=== PATIENT | female | born 1960 | race Caucasian/White ===

== ENCOUNTER → 2018-10-11 07:55 | Outpatient (CLI) | payer OTHER, SELFPAY ==
[2018-10-11 08:22] LABS: Add Manual Diff / Slide Review NO; Basophils Absolute Auto 100 /uL (0-100); Basophils Percent Auto 0.9 % (0-2); Eosinophils Absolute Auto 100 /uL (0-450); Eosinophils Percent Auto 2.2 % (2-4); Hemoglobin 13.4 g/dL (12.0-16.0); Lymphocytes Absolute Auto 2200 /uL (1100-4500); Lymphocytes Percent Auto 38.2 % (25-40); Mean Corpuscular HGB Conc 33.6 % (30-36); Mean Corpuscular Hemoglobin 32.9 PG (26-34); Mean Corpuscular Volume 97.9 fL (80-100); Monocytes Absolute Auto 300 /uL (0-900); Neutrophils Absolute Auto 3000 /uL (1500-7000); Neutrophils Percent Auto 52.7 % (50-75); Platelet Count 231 X10^3/uL (150-400); Red Blood Cell Count 4.08 X10^6/uL (4.0-5.2); Red Cell Distribution Width 13.3 % (11.6-14.8); White Blood Cell Count 5.8 X10^3/uL (4.5-11.0)
[2018-10-11 08:43] LABS: Alanine Aminotransferase 28 IU/L (9-52); Albumin 4.6 g/dL (3.5-5.0); Albumin Globulin Ratio 1.7 (1.0-2.8); Alkaline Phosphatase 52 U/L (38-126); Aspartate Aminotransferase 29 IU/L (14-36); BUN Creatinine Ratio 18.8 (6-22); Bilirubin Total 0.4 mg/dL (0.2-1.3); Blood Urea Nitrogen 15 mg/dL (7-17); Calcium 9.6 mg/dL (8.4-10.2); Carbon Dioxide 28 mmol/L (22-32); Chloride 104 mmol/L (98-107); Cholesterol 229 mg/dL (140-199); Estimated Glomerular Filt Rate > 60.0 mL/min (>60); Globulin 2.7 g/dL (1.7-4.1); Glucose 100 mg/dL (70-100); HDL Cholesterol 55 mg/dL (40-60); HEMOLYSIS < 15 (0-50); LDL Cholesterol Calculated 157 mg/dL (<100); Sodium 139 mmol/L (137-145); Total Protein 7.3 g/dL (6.3-8.2); Triglycerides 84 mg/dL (35-150)
== END ==
PROVIDERS: PCP Physician Assistant; Visit Provider Physician Assistant
DX: E78.2 Mixed hyperlipidemia (principal)
CPT/HCPCS: 36415; 80053; 80061; 85025

== ENCOUNTER → 2019-11-02 08:07 | Outpatient (CLI) | payer OTHER, SELFPAY ==
[2019-11-02 10:16] LABS: Cholesterol 244 mg/dL (140-199); HDL Cholesterol 81 mg/dL (40-60); LDL Cholesterol Calculated 142 mg/dL (<100); Triglycerides 107 mg/dL (35-150)
[2019-11-02 10:17] LABS: Alanine Aminotransferase 16 IU/L (<35); Albumin 4.7 g/dL (3.5-5.0); Albumin Globulin Ratio 1.9 (1.0-2.8); Alkaline Phosphatase 45 U/L (38-126); Aspartate Aminotransferase 27 IU/L (14-36); BUN Creatinine Ratio 12.5 (6-22); Bilirubin Total 0.5 mg/dL (0.2-1.3); Blood Urea Nitrogen 10 mg/dL (7-17); Calcium 10.1 mg/dL (8.4-10.2); Carbon Dioxide 27 mmol/L (22-32); Chloride 102 mmol/L (98-107); Estimated Glomerular Filt Rate > 60.0 mL/min (>60); Globulin 2.5 g/dL (1.7-4.1); Glucose 90 mg/dL (70-100); HEMOLYSIS < 15 (0-50); Potassium 4.5 mmol/L (3.4-5.1); Sodium 137 mmol/L (137-145); Total Protein 7.2 g/dL (6.3-8.2)
== END ==
PROVIDERS: PCP Physician Assistant; Referring Provider Physician Assistant; Visit Provider Physician Assistant
DX: E78.2 Mixed hyperlipidemia (principal)
CPT/HCPCS: 36415; 80053; 80061

== ENCOUNTER → 2020-07-07 07:43 | Outpatient (CLI) | payer OTHER, SELFPAY ==
[2020-07-07 08:45] LABS: Add Manual Diff / Slide Review NO; Basophils Absolute Auto 100 /uL (0-100); Basophils Percent Auto 0.9 % (0-2); Eosinophils Absolute Auto 100 /uL (0-450); Eosinophils Percent Auto 1.5 % (2-4); Hematocrit 37.4 % (36-46); Hemoglobin 12.8 g/dL (12.0-16.0); Lymphocytes Absolute Auto 1900 /uL (1100-4500); Lymphocytes Percent Auto 30.5 % (25-40); Mean Corpuscular HGB Conc 34.3 % (30-36); Mean Corpuscular Hemoglobin 34.3 PG (26-34); Mean Corpuscular Volume 100.1 fL (80-100); Monocytes Absolute Auto 300 /uL (0-900); Monocytes Percent Auto 5.1 % (3-14); Neutrophils Absolute Auto 3800 /uL (1500-7000); Platelet Count 239 X10^3/uL (150-400); Red Blood Cell Count 3.74 X10^6/uL (4.0-5.2); Red Cell Distribution Width 12.5 % (11.6-14.8); White Blood Cell Count 6.1 X10^3/uL (4.5-11.0)
[2020-07-07 09:26] LABS: Alanine Aminotransferase 22 IU/L (<35); Albumin 4.4 g/dL (3.5-5.0); Albumin Globulin Ratio 1.7 (1.0-2.8); Alkaline Phosphatase 54 U/L (38-126); Aspartate Aminotransferase 31 IU/L (14-36); BUN Creatinine Ratio 18.7 (6-22); Bilirubin Total 0.7 mg/dL (0.2-1.3); Blood Urea Nitrogen 14 mg/dL (7-17); Calcium 9.8 mg/dL (8.4-10.2); Carbon Dioxide 29 mmol/L (22-32); Chloride 102 mmol/L (98-107); Cholesterol 234 mg/dL (140-199); Estimated Glomerular Filt Rate > 60.0 mL/min (>60); Globulin 2.6 g/dL (1.7-4.1); Glucose 88 mg/dL (70-100); HDL Cholesterol 86 mg/dL (40-60); HEMOLYSIS < 15 (0-50); LDL Cholesterol Calculated 121 mg/dL (<100); Potassium 4.5 mmol/L (3.4-5.1); Sodium 133 mmol/L (137-145); Triglycerides 136 mg/dL (35-150)
== END ==
PROVIDERS: PCP Physician Assistant; Referring Provider Physician Assistant; Visit Provider Physician Assistant
DX: E78.2 Mixed hyperlipidemia (principal)
CPT/HCPCS: 36415; 80053; 80061; 85025

== ENCOUNTER → 2021-01-09 07:52 | Outpatient (CLI) | payer OTHER, SELFPAY ==
[2021-01-09 08:32] LABS: Add Manual Diff / Slide Review NO; Basophils Absolute Auto 0 /uL (0-100); Basophils Percent Auto 0.7 % (0-2); Eosinophils Absolute Auto 100 /uL (0-450); Eosinophils Percent Auto 1.7 % (2-4); Hematocrit 36.2 % (36-46); Hemoglobin 12.4 g/dL (12.0-16.0); Lymphocytes Absolute Auto 1800 /uL (1100-4500); Lymphocytes Percent Auto 41.4 % (25-40); Mean Corpuscular HGB Conc 34.4 % (30-36); Mean Corpuscular Hemoglobin 34.2 PG (26-34); Mean Corpuscular Volume 99.4 fL (80-100); Monocytes Absolute Auto 300 /uL (0-900); Monocytes Percent Auto 7.7 % (3-14); Neutrophils Absolute Auto 2100 /uL (1500-7000); Neutrophils Percent Auto 48.5 % (50-75); Platelet Count 219 X10^3/uL (150-400); Red Blood Cell Count 3.64 X10^6/uL (4.0-5.2); Red Cell Distribution Width 12.7 % (11.6-14.8); White Blood Cell Count 4.3 X10^3/uL (4.5-11.0)
[2021-01-09 08:34] LABS: Alanine Aminotransferase 23 IU/L (<35); Albumin 4.5 g/dL (3.5-5.0); Albumin Globulin Ratio 1.7 (1.0-2.8); Alkaline Phosphatase 49 U/L (38-126); Aspartate Aminotransferase 35 IU/L (14-36); BUN Creatinine Ratio 18.1 (6-22); Bilirubin Total 0.5 mg/dL (0.2-1.3); Blood Urea Nitrogen 15 mg/dL (7-17); Calcium 9.7 mg/dL (8.4-10.2); Carbon Dioxide 28 mmol/L (22-32); Chloride 103 mmol/L (98-107); Cholesterol 230 mg/dL (140-199); Estimated Glomerular Filt Rate > 60.0 mL/min (>60); Globulin 2.6 g/dL (1.7-4.1); Glucose 99 mg/dL (70-100); HDL Cholesterol 80 mg/dL (40-60); HEMOLYSIS < 15 (0-50); LDL Cholesterol Calculated 131 mg/dL (<100); Potassium 4.2 mmol/L (3.4-5.1); Sodium 137 mmol/L (137-145); Total Protein 7.1 g/dL (6.3-8.2); Triglycerides 96 mg/dL (35-150)
[2021-01-09 09:08] LABS: Ferritin 46 ng/mL (11-264)
[2021-01-09 09:12] LABS: HEMOLYSIS < 15 (0-50); Iron 155 ug/dL (37-170)
[2021-01-09 09:23] LABS: Percent Iron Saturation 52 % (15-50); Total Iron Binding Capacity 297 ug/dL (265-497); Transferrin 255 mg/dL (206-381)
[2021-01-09 09:38] LABS: Folate 17.8 ng/mL (2.76-20.0); Vitamin B12 470 pg/mL (239-931)
== END ==
PROVIDERS: PCP Physician Assistant; Referring Provider Physician Assistant; Visit Provider Physician Assistant
DX: E78.2 Mixed hyperlipidemia (principal)
CPT/HCPCS: 80053; 80061; 82607; 82728; 82746; 83540; 83550; 85025

== ENCOUNTER 2021-03-27 16:17 | Emergency (ER) | payer OTHER, SELFPAY ==
[2021-03-27] VITALS (9 sets, daily range): BP systolic 186–226; BP diastolic 85–109; PULSE 80–97; RESP 18–99; TEMP 36.4; O2SAT 97–99; BMI 25.0
--- NOTE | 2021-03-27 16:46 | DI.RAD.S_ITS ---
PROCEDURE: XR CHEST 1V INDICATIONS: chest pain TECHNIQUE: One view of the chest was acquired. COMPARISON: [facility], , CHEST 2 VIEW, 03/01/2012, 10:58. FINDINGS: Surgical changes and devices: None. Lungs and pleura: Lungs are clear. No pleural effusions or pneumothorax. Mediastinum: Mediastinal contours appear normal. Heart size is normal. Bones and chest wall: No suspicious bony lesions. Overlying soft tissues appear unremarkable. IMPRESSION: Normal for age, source of current chest pain symptoms is not seen. Dictated by: Bravo Garrison M.D. on 03/27/2021 at 17:13 Approved by: Bravo Garrison M.D. on 03/27/2021 at 17:14
[2021-03-27 17:06] LABS: Add Manual Diff / Slide Review NO; Basophils Absolute Auto 100 /uL (0-100); Basophils Percent Auto 0.8 % (0-2); Eosinophils Absolute Auto 0 /uL (0-450); Eosinophils Percent Auto 0.5 % (2-4); Hematocrit 35.8 % (36-46); Hemoglobin 12.3 g/dL (12.0-16.0); Lymphocytes Absolute Auto 2000 /uL (1100-4500); Lymphocytes Percent Auto 23.6 % (25-40); Mean Corpuscular HGB Conc 34.3 % (30-36); Mean Corpuscular Hemoglobin 33.7 PG (26-34); Mean Corpuscular Volume 98.3 fL (80-100); Monocytes Absolute Auto 500 /uL (0-900); Monocytes Percent Auto 5.6 % (3-14); Neutrophils Absolute Auto 6000 /uL (1500-7000); Neutrophils Percent Auto 69.5 % (50-75); Platelet Count 231 X10^3/uL (150-400); Red Blood Cell Count 3.64 X10^6/uL (4.0-5.2); Red Cell Distribution Width 12.5 % (11.6-14.8); White Blood Cell Count 8.7 X10^3/uL (4.5-11.0)
[2021-03-27 17:18] LABS: Alanine Aminotransferase 26 IU/L (<35); Albumin 4.9 g/dL (3.5-5.0); Albumin Globulin Ratio 1.8 (1.0-2.8); Alkaline Phosphatase 54 U/L (38-126); Aspartate Aminotransferase 41 IU/L (14-36); BUN Creatinine Ratio 19.8 (6-22); Bilirubin Total 0.4 mg/dL (0.2-1.3); Blood Urea Nitrogen 16 mg/dL (7-17); Calcium 10.1 mg/dL (8.4-10.2); Carbon Dioxide 23 mmol/L (22-32); Chloride 100 mmol/L (98-107); Creatine Kinase 186 U/L (30-135); Estimated Glomerular Filt Rate > 60.0 mL/min (>60); Globulin 2.8 g/dL (1.7-4.1); Glucose 113 mg/dL (80-110); HEMOLYSIS < 15 (0-50); Lipase 147 U/L (23-300); Sodium 132 mmol/L (137-145); Total Protein 7.7 g/dL (6.3-8.2)
[2021-03-27 17:29] LABS: Troponin I < 0.012 ng/mL (0.01-0.034)
[2021-03-27 17:33] LABS: CKMB % Relative Index 1.1 % (1.5-5.0); Creatine Kinase MB 1.97 ng/mL (<2.37)
--- NOTE | 2021-03-27 20:16 | ED.GENADULT ---
HPI - General Adult General Chief complaint: Hypertension Stated complaint: HIGH BLOOD PRESSURE Time Seen by Provider: 03/27/21 19:23 Source: patient Mode of arrival: Ambulatory Limitations: no limitations History of Present Illness HPI narrative: Patient is a 61-year-old female. No prior history of high blood pressure. Had her eyes dilated couple days ago and since that time she states she has been taking her blood pressure at home and has been elevated. Today the systolic blood pressure was greater than 200. She is not having any chest pain. No shortness of breath. Does have some lightheadedness. She does admit to having multiple stressors at home which could be contributing to her symptoms. Has not tried anything for the high blood pressure prior to arrival. Related Data Allergies Allergy/AdvReac Type Severity Reaction Status Date / Time No Known Drug Allergies Allergy Verified 03/27/21 16:44 Review of Systems Constitutional Constitutional: Denies fever(s) and Denies headache(s) Eyes Eyes: Reports blurry vision ENT Ears, Nose, Mouth, and Throat: Denies headache(s) Cardiovascular Cardiovascular: Denies chest pain and Denies dyspnea Respiratory Respiratory: Denies dyspnea Gastrointestinal Gastrointestinal: Denies abdominal pain and Denies nausea Genitourinary Genitourinary: Reports system reviewed and no additional complaints, except as documented Musculoskeletal Musculoskeletal: Reports system reviewed and no additional complaints, except as documented Integumentary/Breasts Skin/Breast: Reports system reviewed and no additional complaints, except as documented Neurologic Neurologic: Denies headache(s) Psychiatric Psychiatric: Reports anxiety Endocrine Endocrine: Reports system reviewed and no additional complaints, except as documented Hematologic/Lymphatic On Anticoagulants: No Allergic/Immunologic Allergic/Immunologic: Reports system reviewed and no additional complaints, except as documented Patient History Medical History Laceration of left hand Social History Smoking Status: Former smoker Smoking Status: Former smoker alcohol intake frequency: 3 or more drinks per day Alcohol type: beer Substance Use Type: does not use Exam Initial Vital Signs Initial Vital Signs: Vital Signs Temperature 97.6 F 03/27/21 16:36 Pulse Rate 97 H 03/27/21 16:36 Respiratory Rate 18 03/27/21 16:36 Blood Pressure 226/109 H 03/27/21 16:36 Pulse Oximetry 98 03/27/21 16:36 Const General: cooperative and healthy appearing [facility] Head: normal to inspection and normocephalic Eyes General: appearance normal, both eyes and all related structures Resp Auscultation: clear to auscultation bilaterally Cardio Rate: regular rate Rhythm: regular rhythm GI Inspection: normal to inspection Palpation: soft Skin General: no rashes or lesions noted Neuro General: patient alert, patient awake and moves all extremities Extrem General: normal to inspection and capillary refill normal Psych Appearance: grossly normal and well kempt Course Orders Ordered: ED Orders 03/27/21 16:46 XR chest 1V Stat EKG-12 Lead Stat 03/27/21 16:57 Complete Blood Count AUTO DIFF Stat Comprehensive Metabolic Panel Stat Lipase Stat Troponin & CK Cardiac Panel Stat Vital Signs Vital signs: Vital Signs - 8 hr 03/27/21 18:25 03/27/21 18:30 03/27/21 19:00 Pulse Rate 85 85 85 Respiratory Rate 34 H 51 H 46 H Blood Pressure 204/99 H Pulse Oximetry 97 98 98 03/27/21 19:18 03/27/21 19:30 03/27/21 20:00 Pulse Rate 83 83 80 Respiratory Rate 24 48 H 46 H Blood Pressure 201/92 H 186/85 H 191/88 H Pulse Oximetry 98 99 98 03/27/21 20:27 03/27/21 20:31 Pulse Rate 82 81 Respiratory Rate 99 H Blood Pressure 193/93 H 193/93 H Pulse Oximetry 99 Medical Decision Making Lab Data Lab results reviewed: Yes I reviewed the patient's lab results. Result diagrams: 03/27/21 16:57 03/27/21 16:57 Labs: Lab Results 03/27/21 03/27/21 Range/Units 16:57 16:57 WBC 8.7 (4.5-11.0) X10^3/uL RBC 3.64 L (4.0-5.2) X10^6/uL Hgb 12.3 (12.0-16.0) g/dL Hct 35.8 L (36-46) % MCV 98.3 (80-100) fL MCH 33.7 (26-34) PG MCHC 34.3 (30-36) % RDW 12.5 (11.6-14.8) % Plt Count 231 (150-400) X10^3/uL Neut % (Auto) 69.5 (50-75) % Lymph % (Auto) 23.6 L (25-40) % Gregory % (Auto) 5.6 (3-14) % Eos % (Auto) 0.5 L (2-4) % Baso % (Auto) 0.8 (0-2) % Neut # (Auto) 6000 (8906-9403) /uL Lymph # (Auto) 2000 (0043-8605) /uL Gregory # (Auto) 500 (0-900) /uL Eos # (Auto) 0 (0-450) /uL Baso # (Auto) 100 (0-100) /uL Sodium 132 L (137-145) mmol/L Potassium 4.0 (3.4-5.1) mmol/L Chloride 100 (98-107) mmol/L Carbon Dioxide 23 (22-32) mmol/L BUN 16 (7-17) mg/dL Creatinine 0.81 (0.52-1.04) mg/dL Estimated GFR > 60.0 (>60) mL/min BUN/Creatinine Ratio 19.8 (6-22) Glucose 113 H (80-110) mg/dL Calcium 10.1 (8.4-10.2) mg/dL Total Bilirubin 0.4 (0.2-1.3) mg/dL AST 41 H (14-36) IU/L ALT 26 (<35) IU/L Alkaline Phosphatase 54 (38-126) U/L Total Creatine Kinase 186 H (30-135) U/L CK-MB (CK-2) 1.97 (<2.37) ng/mL CK-MB (CK-2) Rel Index 1.1 L (1.5-5.0) % Troponin I < 0.012 (0.01-0.034) ng/mL Total Protein 7.7 (6.3-8.2) g/dL Albumin 4.9 (3.5-5.0) g/dL Globulin 2.8 (1.7-4.1) g/dL Albumin/Globulin Ratio 1.8 (1.0-2.8) Lipase 147 (23-300) U/L Imaging Data Chest x-ray: Radiologist's Impression: [address] [id number] ReportSigned Patient: Delilah Severino AMR#: [id number]: 1960cct:[id number]/Sex: 61 / FDate of Service: 03/27/21Loc: EDAccession Number: [id number] Procedure: XR chest 1V Ordering Provider: Latanya Song D.O. PROCEDURE: XR CHEST 1V INDICATIONS: chest pain TECHNIQUE: One view of the chest was acquired. COMPARISON: [facility], CHEST 2 VIEW, 03/01/2012, 10:58. FINDINGS: Surgical changes and devices: None. Lungs and pleura: Lungs are clear. No pleural effusions or pneumothorax. Mediastinum: Mediastinal contours appear normal. Heart size is normal. Bones and chest wall: No suspicious bony lesions. Overlying soft tissues appear unremarkable. IMPRESSION: Normal for age, source of current chest pain symptoms is not seen. Dictated by: Bravo Garrison M.D. on 03/27/2021 at 17:13 Approved by: Bravo Garrison M.D. on 03/27/2021 at 17:14 MDM Narrative Medical decision making narrative: Patient does have hypertension here in the emergency department but does not appear to have any end-organ dysfunction from this. Not clinically in heart failure. Low suspicion for ACS. Low suspicion for intracranial pathology. Kidney functions unremarkable. No lower extremity swelling. I do suspect that anxiety has an important role in what is going on with her high blood pressure today. No indication for emergent lowering of her blood pressure. We did discuss taking her blood pressure at home and the proper way of doing this. Informed her that she should continue all of her medications as directed. She will contact her primary doctor to discuss the blood pressure values at home to see if there is any indication for starting medications. We will hold on doing that now. She was given strict return precautions and follow-up instructions. She expressed understanding and agreement. Discharge Plan Departure Patient Disposition: Home Clinical Impression: Hypertension Instructions: DI for High Blood Pressure Activity Restrictions/Additional Instructions: I recommend that you continue all of your medications as directed. I do recommend that you take your blood pressure at home like we discussed. Contact your primary provider for follow-up. Return to the emergency department for any new or worsening symptoms Referrals: Grace Ruvalcaba PA-C [Primary Care Provider] -
== END 2021-03-27 20:31 | disposition home or self-care (01) ==
PROVIDERS: Emergency Medicine; Emergency Provider Emergency Medicine; PCP Physician Assistant
DX: I10 Essential (primary) hypertension (principal); R07.9 Chest pain, unspecified; F41.9 Anxiety disorder, unspecified
CPT/HCPCS: 36415; 71045; 80053; 82550; 82553; 83690; 84484; 85025; 93005; 93010; 99283; 99284

== ENCOUNTER → 2021-04-02 17:29 | Outpatient (CLI) | payer OTHER, SELFPAY ==
--- NOTE | 2021-04-02 | DI.MRI.S_ITS ---
PROCEDURE: MR LUMBAR SPINE WO CON INDICATIONS: Radiculopathy, lumbar region TECHNIQUE: Noncontrast sagittal T1 spin echo and T2 fast echo, sagittal STIR, axial T1 and T2 fast spin echo through the lumbar spine. In cases with scoliosis, additional coronal T2 fast spin echo may be performed. COMPARISON: None. FINDINGS: Image quality: Excellent. Alignment and Curvature: There is normal bony alignment. Bone Marrow: Marrow is of normal overall signal. No acute vertebral body compression fractures. Spinal Cord: Conus medullaris terminates at the L1 level. Visualized cord demonstrates normal signal and size. Paraspinous Soft Tissues: No paravertebral masses. T12-L1: Normal appearance except for moderate disc height reduction and disc desiccation.. L1-L2: The degenerative disc disease present is [id number], with disc height reduction and disc desiccation but no significant spinal or foraminal stenosis is seen. L2-L3: Mild degenerative disc height reduction and desiccation. There is mild facet osteoarthritis bilaterally, with slight narrowing of the neural foramen greater on the right than the left and potential for mild asymmetric impingement on the course of the L2 nerve roots. L3-L4: Degenerative disc height reduction and desiccation is [id number], facet osteoarthritis is moderate in severity and greater on the right than the left with likelihood of mild impingement on the course of the right L3 nerve root. L4-L5: The degenerative change at this level is [id number], facet osteoarthritis is moderate and there is secondary bilateral moderate foraminal stenosis with likelihood of symmetric impingement on the course of the L4 nerve roots. Mild ligamentum flavum hypertrophy. L5-S1: No significant degenerative disc disease, minimal facet osteoarthritis without spinal or foraminal stenosis. IMPRESSION: There is relatively mild degenerative disc disease and facet osteoarthritis is a more prominent finding in this patient, as discussed in detail by level in the body of the report above. For foraminal stenosis is slightly greater on the right than the left due to asymmetric right greater than left facet hyperostosis. A disc herniation is not associated. No compression fracture is found. Dictated by: Bravo Garrison M.D. on 04/03/2021 at 15:57 Approved by: Bravo Garrison M.D. on 04/03/2021 at 16:03
== END ==
PROVIDERS: PCP Physician Assistant; Referring Provider Physical Medicine & Rehabilitation Pain Medicine; Visit Provider Physical Medicine & Rehabilitation Pain Medicine
DX: M51.16 Intervertebral disc disorders with radiculopathy, lumbar region (principal); M47.26 Other spondylosis with radiculopathy, lumbar region; M48.061 Spinal stenosis, lumbar region without neurogenic claudication
CPT/HCPCS: 72148

== ENCOUNTER 2021-04-30 13:30 | Outpatient (RCR) | payer OTHER, SELFPAY ==
--- NOTE | 2021-03-04 15:16 | PT.OIE ---
Current Diagnoses Other intervertebral disc degeneration, lumbar region (03/04/21) Strain of muscle, fascia and tendon of lower back, initial encounter (03/04/21) Visit Care Team Role Provider Type Grace Ruvalcaba PA-C Primary Care Provider Non-Staff Specialty: Internal Medicine Address: [address] [place] [address], [id number] Email: [email or web address] Reymundo Ryan MD Attending Provider Physician Referring Provider Specialty: Physical Medicine and Rehab Address: [address] [place] [address], [id number] Email: [email or web address] Physical Therapy Initial Evaluation PT-OP-A Visit Information Start: 03/03/21 15:23 Freq: Status: Active Protocol: Document 03/04/21 07:30 AMB (Rec: 03/04/21 14:33 AMB [id number]) Out-Patient Physical Therapy Visit Information Visit Information Visit Type Initial Evaluation Visit Start Time 07:30 Visit Stop Time 08:15 Total Visit Minutes 45 Visit Number 1 PT-OP-B Current Condition Start: 03/03/21 15:23 Freq: Status: Active Protocol: Document 03/04/21 07:32 AMB (Rec: 03/04/21 07:48 AMB [id number]) Current Condition History of Current Condition Onset Date 02/16/21 Current Complaints low back pain History of Current Condition 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 R sided difficulty with walking historically ( tightness/clicking in hip). Pain in shoulder blades with gardening started pain, and the next day low back pain increased. Previous baseline walking 2 miles with hills, now not walking. Standing for an extended period of time is a bit challenging. Denies radiating pain, numbness and tingling. Treatment Goals Patient/Caregiver Goals Return to walking without pain Prior Functional Status Baseline Function- ADL's Independent Baseline Function- Mobility Independent Current Functional Impairments (Reported) Functional Limitations- ADL's Has mostly been lying supine with ice pack Personal Factors Other Personal Factors That May Effect Pt reports 's health Therapy/Recovery issues make her anxious PT-OP-C Subjective Start: 03/03/21 15:23 Freq: Status: Active Protocol: Document 03/04/21 07:30 AMB (Rec: 03/04/21 15:12 AMB [id number]) Patient Questionnaires Oswestry Low Back Index Oswestry Score 38 Oswestry Impairment 20 to 39% Impaired (Score 20- 39) OP-PT Pain Assessment Comments Pain Comments neck pain, mid back pain and low back pain PT-OP-G Mobility & Gait Start: 03/03/21 15:23 Freq: Status: Active Protocol: Document 03/04/21 07:30 AMB (Rec: 03/04/21 15:12 AMB [id number]) OP Gait Assessment Comments Gait Comments Slightly stiff gait with decreased trunk rotation PT-OP-J Posture/Palpation/Skin Start: 03/03/21 15:23 Freq: Status: Active Protocol: Document 03/04/21 07:30 AMB (Rec: 03/04/21 15:12 AMB [id number]) Posture Evaluation Comments Posture Comments Flat lumbar spine with mild forward head posture PT-OP-K Range of Motion Start: 03/03/21 15:23 Freq: Status: Active Protocol: Document 03/04/21 07:30 AMB (Rec: 03/04/21 15:12 AMB [id number]) Lumbar Spine Range of Motion Lumbar Spine Active Percentage Testing Position Standing Flexion 100 Extension 100 Lateral Flexion Left 75 Lateral Flexion Right 100 Comments slight tightness in the right with left sidebending PT-OP-L Special Tests Start: 03/03/21 15:23 Freq: Status: Active Protocol: Document 03/04/21 07:30 AMB (Rec: 03/04/21 15:12 AMB [id number]) Special Tests Lumbar Spine Special Tests Straight Leg Raise Test Results - Standing Flexion Test Results - Hip Special Tests Scour Test Test Results - AVANI Test Results - PT-OP-M Strength Start: 03/03/21 15:23 Freq: Status: Active Protocol: Document 03/04/21 07:30 AMB (Rec: 03/04/21 15:12 AMB [id number]) Hip Strength Hip Manual Muscle Testing Right Flexion (L2) 4 Good Extension (S1) 4 Good Abduction 4 Good Comments back pain with resisted R flexion and extension 5/5 knee flex/ext and ankle PF and DF bilat Left Flexion (L2) 4+ Good+ Extension (S1) 5 Normal Abduction 4+ Good+ PT-OP-Q Treatments Start: 03/03/21 15:23 Freq: Status: Active Protocol: Document 03/04/21 07:30 AMB (Rec: 03/04/21 15:12 AMB [id number]) Therapeutic Exercises Supine Exercises 3 Supine Exercise Name DL table top Comments difficult 2 Supine Exercise Name supine march wit TA Reps/Minutes 2x10 Comments easy 1 Supine Exercise Name SLR with TA Reps/Minutes 2x10 PT-OP-T Assessment and Plan Start: 03/03/21 15:23 Freq: Status: Active Protocol: Document 03/04/21 07:30 AMB (Rec: 03/04/21 15:12 AMB [id number]) Physical Therapy Assessment Rehab Potential Rehabilitation Potential Good Evaluation Complexity Number of Personal Factors/Comorbidities 0 Number of Body Systems Impaired 4 or More Clinical Presentation at Evaluation Stable Impairments Impairments Activity Tolerance,Functional Activities,Functional Mobility ,Pain Goals Three Impairment HEP Short Term Goal (STG) Delilah will be independent and consistent with a HEP for her core stability. STG Duration 4 weeks Two Impairment Pain Short Term Goal (STG) Delilah will stand to make dinner for one hour without an increase in her baseline low back or midback pain. STG Duration 4 weeks Kiln Firer Goal (LTG) Delilah will lift 10# from the floor to waist height without an increase in pain. LTG Duration 6 weeks One Impairment Walking Short Term Goal (STG) Delilah will walk one mile over flat terrain without an increase in her baseline back pain. STG Duration 4 weeks Kiln Firer Goal (LTG) Delilah will return to walking 2 miles with hills without an increase in back pain. LTG Duration 6 weeks Assessment Summary Assessment Delilah attends physical therapy with recent onset low back pain that does not radiate. She does note a longer history of right leg tightness and upper back pain and wonders if these are related. Overall she is quite flexible, she has a long history of participating in ballet, and her LE strength is well maintained, but her core strength is poor. Prior treatment has included massage therapy which she is continuing to go to but states that she was quite sore afterwards. Physical therapy will focus on return to function (walking) and core stabilization, with manual therapy/modalities as necessary for pain releif. Physical Therapy Plan Frequency and Duration Frequency of Treatment 2x/Week Duration of Treatment 6 weeks Plan of Care Start Date 03/04/21 Plan of Care End Date 04/29/21 Therapeutic Interventions Therapeutic Interventions Home Exercise Program,Joint Mobilizations,Manual Therapy, Neuromuscular Re-education, Self-Care/Home Management,Soft Tissue Mobilization, Therapeutic Activities, Therapeutic Exercises Modalities Cold Pack/Ice Massage,Electric Stimulation,Hot Packs Next Visit Focus/Plan Next Note Type Treatment Note Next Visit Plan Establish HEP for core stabilization, manual as needed, encourage walking program as tolerated
--- NOTE | 2021-03-04 15:16 | PT.OPPOC ---
Physical, Occupational & Speech Therapy At [facility] Current Diagnoses Other intervertebral disc degeneration, lumbar region (03/04/21) Strain of muscle, fascia and tendon of lower back, initial encounter (03/04/21) Visit Care Team Role Provider Type Grace Ruvalcaba PA-C Primary Care Provider Non-Staff Specialty: Internal Medicine Address: [address] [place] [address], [address] Email: [email or web address] Reymundo Ryan MD Attending Provider Physician Referring Provider Specialty: Physical Medicine and Rehab Address: [address] [place] [address], [address] Email: [email or web address] Plan Of Care PT-OP-T Assessment and Plan Start: 03/03/21 15:23 Freq: Status: Active Protocol: Document 03/04/21 07:30 AMB (Rec: 03/04/21 15:12 AMB [id number]) Physical Therapy Assessment Rehab Potential Rehabilitation Potential Good Evaluation Complexity Number of Personal Factors/Comorbidities 0 Number of Body Systems Impaired 4 or More Clinical Presentation at Evaluation Stable Impairments Impairments Activity Tolerance,Functional Activities,Functional Mobility ,Pain Goals Three Impairment HEP Short Term Goal (STG) Delilah will be independent and consistent with a HEP for her core stability. STG Duration 4 weeks Two Impairment Pain Short Term Goal (STG) Delilah will stand to make dinner for one hour without an increase in her baseline low back or midback pain. 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 LTG Duration 6 weeks One Impairment Walking Short Term Goal (STG) Delilah will walk one mile over flat terrain without an increase in her baseline back pain. STG Duration 4 weeks Sewing Machine Operator Floorperson Goal (LTG) Delilah will return to walking 2 miles with hills without an increase in back pain. LTG Duration 6 weeks Assessment Summary Assessment Delilah attends physical therapy with recent onset low back pain that does not radiate. She does note a longer history of right leg tightness and upper back pain and wonders if these are related. Overall she is quite flexible, she has a long history of participating in [employer], and her LE strength is well maintained, but her core strength is poor. Prior treatment has included massage therapy which she is continuing to go to but states that she was quite sore afterwards. Physical therapy will focus on return to function (walking) and core stabilization, with manual therapy/modalities as necessary for pain releif. Physical Therapy Plan Frequency and Duration Frequency of Treatment 2x/Week Duration of Treatment 6 weeks Plan of Care Start Date 03/04/21 Plan of Care End Date 04/29/21 Therapeutic Interventions Therapeutic Interventions Home Exercise Program,Joint Mobilizations,Manual Therapy, Neuromuscular Re-education, Self-Care/Home Management,Soft Tissue Mobilization, Therapeutic Activities, Therapeutic Exercises Modalities Cold Pack/Ice Massage,Electric Stimulation,Hot Packs Next Visit Focus/Plan Next Note Type Treatment Note Next Visit Plan Establish HEP for core stabilization, manual as needed, encourage walking program as tolerated Plan of Care Dates Plan of Care Start Date 03/04/21 Plan of Care End Date 04/29/21 Electronically Signed by: Maria Elena Mora, PT 03/04/21 2414 Please Sign and Return: I have reviewed this Plan of Care and certify that the skilled therapy services above are required to meet the patient?s needs. Physician Signature Date Printed Name and Credentials Clinical Instructor Signature Printed Name and Credentials
--- NOTE | 2021-03-04 16:02 | PT.OPPOC ---
Physical, Occupational & Speech Therapy At [facility] Current Diagnoses Other intervertebral disc degeneration, lumbar region (03/04/21) Strain of muscle, fascia and tendon of lower back, initial encounter (03/04/21) Visit Care Team Role Provider Type Grace Ruvalcaba PA-C Primary Care Provider Non-Staff Specialty: Internal Medicine Address: [address] [place] [address], [address] Email: [email or web address] Reymundo Ryan MD Attending Provider Physician Referring Provider Specialty: Physical Medicine and Rehab Address: [address] [place] [address], [address] Email: [email or web address] Plan Of Care PT-OP-T Assessment and Plan Start: 03/03/21 15:23 Freq: Status: Active Protocol: Document 03/04/21 07:30 AMB (Rec: 03/04/21 15:12 AMB [id number]) Physical Therapy Assessment Rehab Potential Rehabilitation Potential Good Evaluation Complexity Number of Personal Factors/Comorbidities 0 Number of Body Systems Impaired 4 or More Clinical Presentation at Evaluation Stable Impairments Impairments Activity Tolerance,Functional Activities,Functional Mobility ,Pain Goals Three Impairment HEP Short Term Goal (STG) Delilah will be independent and consistent with a HEP for her core stability. STG Duration 4 weeks Two Impairment Pain Short Term Goal (STG) Delilah will stand to make dinner for one hour without an increase in her baseline low back or midback pain. STG Duration 4 weeks Campus Monitor Goal (LTG) Delilah will lift 10# from the floor to waist height without an increase in pain. LTG Duration 6 weeks One Impairment Walking Short Term Goal (STG) Delilah will walk one mile over flat terrain without an increase in her baseline back pain. STG Duration 4 weeks Campus Monitor Goal (LTG) Delilah will return to walking 2 miles with hills without an increase in back pain. LTG Duration 6 weeks Assessment Summary Assessment Delilah attends physical therapy with recent onset low back pain that does not radiate. She does note a longer history of right leg tightness and upper back pain and wonders if these are related. Overall she is quite flexible, she has a long history of participating in [employer], and her LE strength is well maintained, but her core strength is poor. Prior treatment has included massage therapy which she is continuing to go to but states that she was quite sore afterwards. Physical therapy will focus on return to function (walking) and core stabilization, with manual therapy/modalities as necessary for pain releif. Physical Therapy Plan Frequency and Duration Frequency of Treatment 2x/Week Duration of Treatment 6 weeks Plan of Care Start Date 03/04/21 Plan of Care End Date 04/29/21 Therapeutic Interventions Therapeutic Interventions Home Exercise Program,Joint Mobilizations,Manual Therapy, Neuromuscular Re-education, Self-Care/Home Management,Soft Tissue Mobilization, Therapeutic Activities, Therapeutic Exercises Modalities Cold Pack/Ice Massage,Electric Stimulation,Hot Packs Next Visit Focus/Plan Next Note Type Treatment Note Next Visit Plan Establish HEP for core stabilization, manual as needed, encourage walking program as tolerated Plan of Care Dates Plan of Care Start Date 03/04/21 Plan of Care End Date 04/29/21 Electronically Signed by: Maria Elena Mora, PT 03/04/21 0647 Please Sign and Return: I have reviewed this Plan of Care and certify that the skilled therapy services above are required to meet the patient?s needs. Physician Signature Date Printed Name and Credentials Clinical Instructor Signature Printed Name and Credentials
--- NOTE | 2021-03-06 14:13 | PT.OTN ---
Current Diagnoses Other intervertebral disc degeneration, lumbar region (03/06/21) Strain of muscle, fascia and tendon of lower back, initial encounter (03/06/21) Physical Therapy Treatment Note PT-OP-A Visit Information Start: 03/03/21 15:23 Freq: Status: Active Protocol: Document 03/06/21 09:00 AMB (Rec: 03/06/21 10:22 AMB [id number]) Out-Patient Physical Therapy Visit Information Visit Information Visit Type Treatment Note Visit Start Time 09:00 Visit Stop Time 09:45 Total Visit Minutes 45 Visit Number 2 PT-OP-B Current Condition Start: 03/03/21 15:23 Freq: Status: Active Protocol: Document 03/04/21 07:32 AMB (Rec: 03/04/21 07:48 AMB [id number]) Current Condition History of Current Condition Onset Date 02/16/21 Current Complaints low back pain History of Current Condition 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 R sided difficulty with walking historically ( tightness/clicking in hip). Pain in shoulder blades with gardening started pain, and the next day low back pain increased. Previous baseline walking 2 miles with hills, now not walking. Standing for an extended period of time is a bit challenging. Denies radiating pain, numbness and tingling. Treatment Goals Patient/Caregiver Goals Return to walking without pain Prior Functional Status Baseline Function- ADL's Independent Baseline Function- Mobility Independent Current Functional Impairments (Reported) Functional Limitations- ADL's Has mostly been lying supine with ice pack Personal Factors Other Personal Factors That May Effect Pt reports 's health Therapy/Recovery issues make her anxious PT-OP-C Subjective Start: 03/03/21 15:23 Freq: Status: Active Protocol: Document 03/06/21 09:00 AMB (Rec: 03/06/21 10:22 AMB [id number]) OP-PT Subjective Patient Comments Patient Comments Pt had a massage of her upper back and that helped. PT-OP-G Mobility & Gait Start: 03/03/21 15:23 Freq: Status: Active Protocol: Document 03/04/21 07:30 AMB (Rec: 03/04/21 15:12 AMB [id number]) OP Gait Assessment Comments Gait Comments Slightly stiff gait with decreased trunk rotation PT-OP-J Posture/Palpation/Skin Start: 03/03/21 15:23 Freq: Status: Active Protocol: Document 03/04/21 07:30 AMB (Rec: 03/04/21 15:12 AMB [id number]) Posture Evaluation Comments Posture Comments Flat lumbar spine with mild forward head posture PT-OP-K Range of Motion Start: 03/03/21 15:23 Freq: Status: Active Protocol: Document 03/04/21 07:30 AMB (Rec: 03/04/21 15:12 AMB [id number]) Lumbar Spine Range of Motion Lumbar Spine Active Percentage Testing Position Standing Flexion 100 Extension 100 Lateral Flexion Left 75 Lateral Flexion Right 100 Comments slight tightness in the right with left sidebending PT-OP-L Special Tests Start: 03/03/21 15:23 Freq: Status: Active Protocol: Document 03/04/21 07:30 AMB (Rec: 03/04/21 15:12 AMB [id number]) Special Tests Lumbar Spine Special Tests Straight Leg Raise Test Results - Standing Flexion Test Results - Hip Special Tests Scour Test Test Results - AVANI Test Results - PT-OP-M Strength Start: 03/03/21 15:23 Freq: Status: Active Protocol: Document 03/04/21 07:30 AMB (Rec: 03/04/21 15:12 AMB [id number]) Hip Strength Hip Manual Muscle Testing Right Flexion (L2) 4 Good Extension (S1) 4 Good Abduction 4 Good Comments back pain with resisted R flexion and extension 5/5 knee flex/ext and ankle PF and DF bilat Left Flexion (L2) 4+ Good+ Extension (S1) 5 Normal Abduction 4+ Good+ PT-OP-Q Treatments Start: 03/03/21 15:23 Freq: Status: Active Protocol: Document 03/06/21 14:08 AMB (Rec: 03/06/21 14:13 AMB [id number]) Cardio Equipment Recumbent Elliptical ([employer]) Duration (Minutes) 7 Resistance 3 Therapeutic Exercises Supine Exercises 1 Supine Exercise Name SLR with TA Reps/Minutes 2x10 Sitting Exercises 1 Sitting Exercise Name cape verdean ball 65cm Comments pelvic circles, LAQ, TKE Other Exercises 3 Other Exercise Name UE flexion in quadruped alternating Reps/Minutes 2x15 2 Other Exercise Name cat cow Reps/Minutes 10 1 Other Exercise Name marce pose with sidebend Reps/Minutes 30x3 PT-OP-T Assessment and Plan Start: 03/03/21 15:23 Freq: Status: Active Protocol: Document 03/06/21 09:00 AMB (Rec: 03/06/21 10:22 AMB [id number]) Physical Therapy Assessment Goals Three Impairment HEP Short Term Goal (STG) Delilah will be independent and consistent with a HEP for her core stability. STG Duration 4 weeks Two Impairment Pain Short Term Goal (STG) Delilah will stand to make dinner for one hour without an increase in her baseline low back or midback pain. STG Duration 4 weeks [facility] Goal (LTG) Delilah will lift 10# from the floor to waist height without an increase in pain. LTG Duration 6 weeks One Impairment Walking Short Term Goal (STG) Delilah will walk one mile over flat terrain without an increase in her baseline back pain. STG Duration 4 weeks Security Professionals Goal (LTG) Delilah will return to walking 2 miles with hills without an increase in back pain. LTG Duration 6 weeks Assessment Summary Assessment Fora tolerated exercises well today, does have increased tension on R, but stabilization exercises did not seem to exacerbate. Physical Therapy Plan Next Visit Focus/Plan Next Note Type Treatment Note Next Visit Plan Establish HEP for core stabilization, manual as needed, encourage walking program as tolerated stretching for midback.
--- NOTE | 2021-03-11 11:11 | PT.OTN ---
Current Diagnoses Other intervertebral disc degeneration, lumbar region (03/11/21) Strain of muscle, fascia and tendon of lower back, initial encounter (03/11/21) Physical Therapy Treatment Note PT-OP-A Visit Information Start: 03/03/21 15:23 Freq: Status: Active Protocol: Document 03/11/21 10:15 AMB (Rec: 03/11/21 10:18 AMB [id number]) Out-Patient Physical Therapy Visit Information Visit Information Visit Type Treatment Note Visit Start Time 10:15 Visit Stop Time 11:00 Total Visit Minutes 45 Visit Number 3 PT-OP-B Current Condition Start: 03/03/21 15:23 Freq: Status: Active Protocol: Document 03/04/21 07:32 AMB (Rec: 03/04/21 07:48 AMB [id number]) Current Condition History of Current Condition Onset Date 02/16/21 Current Complaints low back pain History of Current Condition 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 R sided difficulty with walking historically ( tightness/clicking in hip). Pain in shoulder blades with gardening started pain, and the next day low back pain increased. Previous baseline walking 2 miles with hills, now not walking. Standing for an extended period of time is a bit challenging. Denies radiating pain, numbness and tingling. Treatment Goals Patient/Caregiver Goals Return to walking without pain Prior Functional Status Baseline Function- ADL's Independent Baseline Function- Mobility Independent Current Functional Impairments (Reported) Functional Limitations- ADL's Has mostly been lying supine with ice pack Personal Factors Other Personal Factors That May Effect Pt reports 's health Therapy/Recovery issues make her anxious PT-OP-C Subjective Start: 03/03/21 15:23 Freq: Status: Active Protocol: Document 03/11/21 10:15 AMB (Rec: 03/11/21 11:11 AMB [id number]) OP-PT Subjective Patient Comments Patient Comments Tuesday had increased pain after hamstring stretch (long sitting), upper back pain on Tuesday. PT-OP-G Mobility & Gait Start: 03/03/21 15:23 Freq: Status: Active Protocol: Document 03/04/21 07:30 AMB (Rec: 03/04/21 15:12 AMB [id number]) OP Gait Assessment Comments Gait Comments Slightly stiff gait with decreased trunk rotation PT-OP-J Posture/Palpation/Skin Start: 03/03/21 15:23 Freq: Status: Active Protocol: Document 03/04/21 07:30 AMB (Rec: 03/04/21 15:12 AMB [id number]) Posture Evaluation Comments Posture Comments Flat lumbar spine with mild forward head posture PT-OP-K Range of Motion Start: 03/03/21 15:23 Freq: Status: Active Protocol: Document 03/04/21 07:30 AMB (Rec: 03/04/21 15:12 AMB [id number]) Lumbar Spine Range of Motion Lumbar Spine Active Percentage Testing Position Standing Flexion 100 Extension 100 Lateral Flexion Left 75 Lateral Flexion Right 100 Comments slight tightness in the right with left sidebending PT-OP-L Special Tests Start: 03/03/21 15:23 Freq: Status: Active Protocol: Document 03/04/21 07:30 AMB (Rec: 03/04/21 15:12 AMB [id number]) Special Tests Lumbar Spine Special Tests Straight Leg Raise Test Results - Standing Flexion Test Results - Hip Special Tests Scour Test Test Results - AVANI Test Results - PT-OP-M Strength Start: 03/03/21 15:23 Freq: Status: Active Protocol: Document 03/04/21 07:30 AMB (Rec: 03/04/21 15:12 AMB [id number]) Hip Strength Hip Manual Muscle Testing Right Flexion (L2) 4 Good Extension (S1) 4 Good Abduction 4 Good Comments back pain with resisted R flexion and extension 5/5 knee flex/ext and ankle PF and DF bilat Left Flexion (L2) 4+ Good+ Extension (S1) 5 Normal Abduction 4+ Good+ PT-OP-Q Treatments Start: 03/03/21 15:23 Freq: Status: Active Protocol: Document 03/11/21 10:15 AMB (Rec: 03/11/21 11:11 AMB [id number]) Therapeutic Exercises Supine Exercises 1 Supine Exercise Name SLR with TA Reps/Minutes 2x10 Sidelying Exercises 2 Sidelying Exercise Name QL stretch Side left Reps/Minutes 30x2 1 Sidelying Exercise Name open book. Reps/Minutes 10 Standing Exercises 1 Standing Exercise Name t band rows Side bilateral Resistance #3 Reps/Minutes 2x10 Comments vc TA, soft knees, relax shoulders Other Exercises 4 Other Exercise Name thread the needle Side bilateral Reps/Minutes 5 2 Other Exercise Name cat cow Reps/Minutes 10 PT-OP-T Assessment and Plan Start: 03/03/21 15:23 Freq: Status: Active Protocol: Document 03/11/21 10:15 AMB (Rec: 03/11/21 11:11 AMB [id number]) Physical Therapy Assessment Assessment Summary Assessment Discussed nature of back pain and that she will likely have small flareups as she recovers . Encouraged her to avoid bending/twisting and bending for hamstring stretching activities, also discussed weed whacking (lots of rotation) and that might not be the best activity for now. Physical Therapy Plan Next Visit Focus/Plan Next Note Type Treatment Note Next Visit Plan Establish HEP for core stabilization, manual as needed, encourage walking program as tolerated stretching for midback.
--- NOTE | 2021-03-13 10:32 | PT.OTN ---
Current Diagnoses Other intervertebral disc degeneration, lumbar region (03/13/21) Strain of muscle, fascia and tendon of lower back, initial encounter (03/13/21) Physical Therapy Treatment Note PT-OP-A Visit Information Start: 03/03/21 15:23 Freq: Status: Active Protocol: Document 03/13/21 09:01 AMB (Rec: 03/13/21 09:28 AMB [id number]) Out-Patient Physical Therapy Visit Information Visit Information Visit Type Treatment Note Visit Start Time 09:00 Visit Stop Time 09:45 Total Visit Minutes 45 Visit Number 4 PT-OP-B Current Condition Start: 03/03/21 15:23 Freq: Status: Active Protocol: Document 03/04/21 07:32 AMB (Rec: 03/04/21 07:48 AMB [id number]) Current Condition History of Current Condition Onset Date 02/16/21 Current Complaints low back pain History of Current Condition 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 R sided difficulty with walking historically ( tightness/clicking in hip). Pain in shoulder blades with gardening started pain, and the next day low back pain increased. Previous baseline walking 2 miles with hills, now not walking. Standing for an extended period of time is a bit challenging. Denies radiating pain, numbness and tingling. Treatment Goals Patient/Caregiver Goals Return to walking without pain Prior Functional Status Baseline Function- ADL's Independent Baseline Function- Mobility Independent Current Functional Impairments (Reported) Functional Limitations- ADL's Has mostly been lying supine with ice pack Personal Factors Other Personal Factors That May Effect Pt reports 's health Therapy/Recovery issues make her anxious PT-OP-C Subjective Start: 03/03/21 15:23 Freq: Status: Active Protocol: Document 03/13/21 09:01 AMB (Rec: 03/13/21 09:28 AMB [id number]) OP-PT Subjective Patient Comments Patient Comments Delilah reports increased pain yesterday in her low back, unsure why. PT-OP-G Mobility & Gait Start: 03/03/21 15:23 Freq: Status: Active Protocol: Document 03/04/21 07:30 AMB (Rec: 03/04/21 15:12 AMB [id number]) OP Gait Assessment Comments Gait Comments Slightly stiff gait with decreased trunk rotation PT-OP-J Posture/Palpation/Skin Start: 03/03/21 15:23 Freq: Status: Active Protocol: Document 03/04/21 07:30 AMB (Rec: 03/04/21 15:12 AMB [id number]) Posture Evaluation Comments Posture Comments Flat lumbar spine with mild forward head posture PT-OP-K Range of Motion Start: 03/03/21 15:23 Freq: Status: Active Protocol: Document 03/04/21 07:30 AMB (Rec: 03/04/21 15:12 AMB [id number]) Lumbar Spine Range of Motion Lumbar Spine Active Percentage Testing Position Standing Flexion 100 Extension 100 Lateral Flexion Left 75 Lateral Flexion Right 100 Comments slight tightness in the right with left sidebending PT-OP-L Special Tests Start: 03/03/21 15:23 Freq: Status: Active Protocol: Document 03/04/21 07:30 AMB (Rec: 03/04/21 15:12 AMB [id number]) Special Tests Lumbar Spine Special Tests Straight Leg Raise Test Results - Standing Flexion Test Results - Hip Special Tests Scour Test Test Results - AVANI Test Results - PT-OP-M Strength Start: 03/03/21 15:23 Freq: Status: Active Protocol: Document 03/04/21 07:30 AMB (Rec: 03/04/21 15:12 AMB [id number]) Hip Strength Hip Manual Muscle Testing Right Flexion (L2) 4 Good Extension (S1) 4 Good Abduction 4 Good Comments back pain with resisted R flexion and extension 5/5 knee flex/ext and ankle PF and DF bilat Left Flexion (L2) 4+ Good+ Extension (S1) 5 Normal Abduction 4+ Good+ PT-OP-Q Treatments Start: 03/03/21 15:23 Freq: Status: Active Protocol: Document 03/13/21 09:01 AMB (Rec: 03/13/21 09:28 AMB [id number]) Therapeutic Exercises Supine Exercises 3 Supine Exercise Name LTR Reps/Minutes 20 2 Supine Exercise Name sciatic n glide Reps/Minutes 5 Sidelying Exercises 2 Sidelying Exercise Name QL stretch Side left Reps/Minutes 30x2 1 Sidelying Exercise Name open book. Reps/Minutes 10 Other Exercises 4 Other Exercise Name thread the needle Side bilateral Reps/Minutes 5 3 Other Exercise Name quadruped TA with UE flexion alternating Reps/Minutes 10 1 Other Exercise Name marce pose with sidebend Reps/Minutes 30x3 PT-OP-T Assessment and Plan Start: 03/03/21 15:23 Freq: Status: Active Protocol: Document 03/13/21 09:01 AMB (Rec: 03/13/21 09:28 AMB [id number]) Physical Therapy Assessment Goals Three Impairment HEP Short Term Goal (STG) Delilah will be independent and consistent with a HEP for her core stability. STG Duration 4 weeks Two Impairment Pain Short Term Goal (STG) Delilah will stand to make dinner for one hour without an increase in her baseline low back or midback pain. STG Duration 4 weeks Restaurant Host Goal (LTG) Delilah will lift 10# from the floor to waist height without an increase in pain. LTG Duration 6 weeks One Impairment Walking Short Term Goal (STG) Delilah will walk one mile over flat terrain without an increase in her baseline back pain. STG Duration 4 weeks Correction Goal (LTG) Delilah will return to walking 2 miles with hills without an increase in back pain. LTG Duration 6 weeks Assessment Summary Assessment Delilah had increased low back pain yesterday and did have some sciatic n tension today on the R. Did not progress HEP due to increased pain today, did discuss body mechanics with washing dishes. Physical Therapy Plan Frequency and Duration Frequency of Treatment 2x/Week Duration of Treatment 6 weeks Plan of Care Start Date 03/04/21 Plan of Care End Date 04/29/21 Therapeutic Interventions Therapeutic Interventions Home Exercise Program,Joint Mobilizations,Manual Therapy, Neuromuscular Re-education, Self-Care/Home Management,Soft Tissue Mobilization, Therapeutic Activities, Therapeutic Exercises Modalities Cold Pack/Ice Massage,Electric Stimulation,Hot Packs Next Visit Focus/Plan Next Note Type Treatment Note Next Visit Plan Establish HEP for core stabilization, manual as needed, encourage walking program as tolerated stretching for midback.
--- NOTE | 2021-03-17 08:17 | PT.OTN ---
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 R sided difficulty with walking historically ( tightness/clicking in hip). Pain in shoulder blades with gardening started pain, and the next day low back pain increased. Previous baseline walking 2 miles with hills, now not walking. Standing for an extended period of time is a bit challenging. Denies radiating pain, numbness and tingling. Treatment Goals Patient/Caregiver Goals Return to walking without pain Prior Functional Status Baseline Function- ADL's Independent Baseline Function- Mobility Independent Current Functional Impairments (Reported) Functional Limitations- ADL's Has mostly been lying supine with ice pack Personal Factors Other Personal Factors That May Effect Pt reports 's health Therapy/Recovery issues make her anxious PT-OP-C Subjective Start: 03/03/21 15:23 Freq: Status: Active Protocol: Document 03/17/21 07:30 SP (Rec: 03/17/21 08:20 SP [id number]) OP-PT Subjective Patient Comments Patient Comments Pt states compliant with HEP instructed in tx. R shld and Mid back is getting better, mainly low back and saddle around R ilium to lateral and anterior R thigh and knee achy discomfort. PT-OP-G Mobility & Gait Start: 03/03/21 15:23 Freq: Status: Active Protocol: Document 03/04/21 07:30 AMB (Rec: 03/04/21 15:12 AMB [id number]) OP Gait Assessment Comments Gait Comments Slightly stiff gait with decreased trunk rotation PT-OP-J Posture/Palpation/Skin Start: 03/03/21 15:23 Freq: Status: Active Protocol: Document 03/04/21 07:30 AMB (Rec: 03/04/21 15:12 AMB [id number]) Posture Evaluation Comments Posture Comments Flat lumbar spine with mild forward head posture PT-OP-K Range of Motion Start: 03/03/21 15:23 Freq: Status: Active Protocol: Document 03/04/21 07:30 AMB (Rec: 03/04/21 15:12 AMB [id number]) Lumbar Spine Range of Motion Lumbar Spine Active Percentage Testing Position Standing Flexion 100 Extension 100 Lateral Flexion Left 75 Lateral Flexion Right 100 Comments slight tightness in the right with left sidebending PT-OP-L Special Tests Start: 03/03/21 15:23 Freq: Status: Active Protocol: Document 03/04/21 07:30 AMB (Rec: 03/04/21 15:12 AMB [id number]) Special Tests Lumbar Spine Special Tests Straight Leg Raise Test Results - Standing Flexion Test Results - Hip Special Tests Scour Test Test Results - AVANI Test Results - PT-OP-M Strength Start: 03/03/21 15:23 Freq: Status: Active Protocol: Document 03/04/21 07:30 AMB (Rec: 03/04/21 15:12 AMB [id number]) Hip Strength Hip Manual Muscle Testing Right Flexion (L2) 4 Good Extension (S1) 4 Good Abduction 4 Good Comments back pain with resisted R flexion and extension 5/5 knee flex/ext and ankle PF and DF bilat Left Flexion (L2) 4+ Good+ Extension (S1) 5 Normal Abduction 4+ Good+ PT-OP-Q Treatments Start: 03/03/21 15:23 Freq: Status: Active Protocol: Document 03/17/21 07:30 SP (Rec: 03/17/21 08:20 SP [id number]) Therapeutic Exercises Supine Exercises ITB stretch Side bilateral Reps/Minutes 30 x2 3 Supine Exercise Name LTR Reps/Minutes 20 2 Supine Exercise Name sciatic and peroneal n glide Side right Reps/Minutes 5 Sidelying Exercises 2 Sidelying Exercise Name QL stretch (single LTR stretch ) on side Side left Reps/Minutes 30x2 1 Sidelying Exercise Name open book. Side bilateral Reps/Minutes 10 Standing Exercises TFL stretch Standing Exercise Name stand lunge and 1/2 kneel w/ hip IR Reps/Minutes 30 x3 Other Exercises self stms ball wall Other Exercise Name TFL, glut med, pirformis, paraspinals Reps/Minutes 30 4 Other Exercise Name thread the needle Side bilateral Reps/Minutes 5 3 Other Exercise Name quadruped TA with UE flexion alternating Reps/Minutes 10 2 Other Exercise Name cat cow Reps/Minutes 10 PT-OP-T Assessment and Plan Start: 03/03/21 15:23 Freq: Status: Active Protocol: Document 03/17/21 07:30 SP (Rec: 03/17/21 08:20 SP [id number]) Physical Therapy Assessment Goals Three Impairment HEP Short Term Goal (STG) Delilah will be independent and consistent with a HEP for her core stability. STG Duration 4 weeks Two Impairment Pain Short Term Goal (STG) Delilah will stand to make dinner for one hour without an increase in her baseline low back or midback pain. STG Duration 4 weeks Pool Attendant Goal (LTG) Delilah will lift 10# from the floor to waist height without an increase in pain. LTG Duration 6 weeks One Impairment Walking Short Term Goal (STG) Delilah will walk one mile over flat terrain without an increase in her baseline back pain. STG Duration 4 weeks Pool Attendant Goal (LTG) Delilah will return to walking 2 miles with hills without an increase in back pain. LTG Duration 6 weeks Assessment Summary Assessment Pt responded well to HEP review, added open book, standing and 1/2 kneel TFL stretch, and self STMs w/ racquetball on wall to TFL, paraspinals, glut med and pirformis to to decrease tightness and allow flexibility. Cued for set up and proper form with good result feedback. Physical Therapy Plan Frequency and Duration Frequency of Treatment 2x/Week Duration of Treatment 6 weeks Plan of Care Start Date 03/04/21 Plan of Care End Date 04/29/21 Therapeutic Interventions Therapeutic Interventions Home Exercise Program,Joint Mobilizations,Manual Therapy, Neuromuscular Re-education, Self-Care/Home Management,Soft Tissue Mobilization, Therapeutic Activities, Therapeutic Exercises Modalities Cold Pack/Ice Massage,Electric Stimulation,Hot Packs Next Visit Focus/Plan Next Note Type Treatment Note Next Visit Plan Assess response to flexibility , self STMs at wall w/ rac ball. Next tx estabilish core and hip stabilization strengthening. PT POC:Establish HEP for core stabilization, manual as needed, encourage walking program as tolerated stretching for midback.
--- NOTE | 2021-03-20 09:00 | PT.OTN ---
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 R sided difficulty with walking historically ( tightness/clicking in hip). Pain in shoulder blades with gardening started pain, and the next day low back pain increased. Previous baseline walking 2 miles with hills, now not walking. Standing for an extended period of time is a bit challenging. Denies radiating pain, numbness and tingling. Treatment Goals Patient/Caregiver Goals Return to walking without pain Prior Functional Status Baseline Function- ADL's Independent Baseline Function- Mobility Independent Current Functional Impairments (Reported) Functional Limitations- ADL's Has mostly been lying supine with ice pack Personal Factors Other Personal Factors That May Effect Pt reports 's health Therapy/Recovery issues make her anxious PT-OP-C Subjective Start: 03/03/21 15:23 Freq: Status: Active Protocol: Document 03/20/21 08:19 SP (Rec: 03/20/21 08:58 SP [id number]) OP-PT Subjective Patient Comments Patient Comments Pt LB feels little throbbing, only when up for a while, did get massage yesterday in upper back not LB due didnt' respond well after last massage in LB. Pt is taking ibuprofen and muscle relaxer when needed. PT-OP-G Mobility & Gait Start: 03/03/21 15:23 Freq: Status: Active Protocol: Document 03/04/21 07:30 AMB (Rec: 03/04/21 15:12 AMB [id number]) OP Gait Assessment Comments Gait Comments Slightly stiff gait with decreased trunk rotation PT-OP-J Posture/Palpation/Skin Start: 03/03/21 15:23 Freq: Status: Active Protocol: Document 03/04/21 07:30 AMB (Rec: 03/04/21 15:12 AMB [id number]) Posture Evaluation Comments Posture Comments Flat lumbar spine with mild forward head posture PT-OP-K Range of Motion Start: 03/03/21 15:23 Freq: Status: Active Protocol: Document 03/04/21 07:30 AMB (Rec: 03/04/21 15:12 AMB [id number]) Lumbar Spine Range of Motion Lumbar Spine Active Percentage Testing Position Standing Flexion 100 Extension 100 Lateral Flexion Left 75 Lateral Flexion Right 100 Comments slight tightness in the right with left sidebending PT-OP-L Special Tests Start: 03/03/21 15:23 Freq: Status: Active Protocol: Document 03/04/21 07:30 AMB (Rec: 03/04/21 15:12 AMB [id number]) Special Tests Lumbar Spine Special Tests Straight Leg Raise Test Results - Standing Flexion Test Results - Hip Special Tests Scour Test Test Results - AVANI Test Results - PT-OP-M Strength Start: 03/03/21 15:23 Freq: Status: Active Protocol: Document 03/04/21 07:30 AMB (Rec: 03/04/21 15:12 AMB [id number]) Hip Strength Hip Manual Muscle Testing Right Flexion (L2) 4 Good Extension (S1) 4 Good Abduction 4 Good Comments back pain with resisted R flexion and extension 5/5 knee flex/ext and ankle PF and DF bilat Left Flexion (L2) 4+ Good+ Extension (S1) 5 Normal Abduction 4+ Good+ PT-OP-Q Treatments Start: 03/03/21 15:23 Freq: Status: Active Protocol: Document 03/20/21 08:19 SP (Rec: 03/20/21 08:58 SP [id number]) Therapeutic Exercises Supine Exercises core/ glut bridge Resistance AROM Reps/Minutes 2x10 Comments cued PPT & core fac, stable pelvis lift core SLR Supine Exercise Name alternate Side bilateral Resistance AROM Reps/Minutes 2x8 Comments cued slow control, core fac stable pelvis- fatigues approx 8 reps ITB stretch Side bilateral Equipment Used w/strap Reps/Minutes 30 x2 3 Supine Exercise Name LTR Reps/Minutes 20 Sidelying Exercises 2 Sidelying Exercise Name QL stretch on side over pillow Side bilateral Reps/Minutes 30x2 Comments lateral ribcage stretch 1 Sidelying Exercise Name open book. Side bilateral Reps/Minutes 10 Standing Exercises TFL stretch Standing Exercise Name stand lunge w/ hip IR Equipment Used contact table/ wall Reps/Minutes 30 x3 Other Exercises 3 Other Exercise Name quadruped TA with UE flexion and LE ext slide contact table alternating Reps/Minutes x10 PT-OP-T Assessment and Plan Start: 03/03/21 15:23 Freq: Status: Active Protocol: Document 03/20/21 08:19 SP (Rec: 03/20/21 08:58 SP [id number]) Physical Therapy Assessment Goals Three Impairment HEP Short Term Goal (STG) Delilah will be independent and consistent with a HEP for her core stability. STG Duration 4 weeks Two Impairment Pain Short Term Goal (STG) Delilah will stand to make dinner for one hour without an increase in her baseline low back or midback pain. STG Duration 4 weeks Detention Goal (LTG) Delilah will lift 10# from the floor to waist height without an increase in pain. LTG Duration 6 weeks One Impairment Walking Short Term Goal (STG) Delilah will walk one mile over flat terrain without an increase in her baseline back pain. STG Duration 4 weeks Project Specialist Goal (LTG) Delilah will return to walking 2 miles with hills without an increase in back pain. LTG Duration 6 weeks Assessment Summary Assessment Pt responded well flexibility review, initiated sidelying QL and added core facil supine and quadruped LE ext to bird dog slide contact table bird dog, improved self corrections for proper form post cues. Pt stated painfree through tx. Physical Therapy Plan Frequency and Duration Frequency of Treatment 2x/Week Duration of Treatment 6 weeks Plan of Care Start Date 03/04/21 Plan of Care End Date 04/29/21 Therapeutic Interventions Therapeutic Interventions Home Exercise Program,Joint Mobilizations,Manual Therapy, Neuromuscular Re-education, Self-Care/Home Management,Soft Tissue Mobilization, Therapeutic Activities, Therapeutic Exercises Modalities Cold Pack/Ice Massage,Electric Stimulation,Hot Packs Next Visit Focus/Plan Next Note Type Treatment Note Next Visit Plan Assess response to flexibility , core initiation supine. Continue to progress core and hip stabilization strengthening. PT POC:Establish HEP for core stabilization, manual as needed, encourage walking program as tolerated stretching for midback.
--- NOTE | 2021-04-14 15:29 | PT.OTN ---
Current Diagnoses Other intervertebral disc degeneration, lumbar region (04/14/21) Strain of muscle, fascia and tendon of lower back, initial encounter (04/14/21) Physical Therapy Treatment Note PT-OP-A Visit Information Start: 03/03/21 15:23 Freq: Status: Active Protocol: Document 04/14/21 09:00 AMB (Rec: 04/14/21 09:43 AMB [id number]) Out-Patient Physical Therapy Visit Information Visit Information Visit Type Treatment Note Visit Start Time 09:00 Visit Stop Time 09:45 Total Visit Minutes 45 Visit Number 7 Number of BIOLOGICAL TECHNICAL OFFICER Visits 0 PT-OP-B Current Condition Start: 03/03/21 15:23 Freq: Status: Active Protocol: Document 03/04/21 07:32 AMB (Rec: 03/04/21 07:48 AMB [id number]) Current Condition History of Current Condition Onset Date 02/16/21 Current Complaints low back pain History of Current Condition 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 R sided difficulty with walking historically ( tightness/clicking in hip). Pain in shoulder blades with gardening started pain, and the next day low back pain increased. Previous baseline walking 2 miles with hills, now not walking. Standing for an extended period of time is a bit challenging. Denies radiating pain, numbness and tingling. Treatment Goals Patient/Caregiver Goals Return to walking without pain Prior Functional Status Baseline Function- ADL's Independent Baseline Function- Mobility Independent Current Functional Impairments (Reported) Functional Limitations- ADL's Has mostly been lying supine with ice pack Personal Factors Other Personal Factors That May Effect Pt reports 's health Therapy/Recovery issues make her anxious PT-OP-C Subjective Start: 03/03/21 15:23 Freq: Status: Active Protocol: Document 04/14/21 09:00 AMB (Rec: 04/14/21 09:43 AMB [id number]) OP-PT Subjective Patient Comments Patient Comments Pt is returning after about a month off to get MRI results, she is hoping to continue with PT to avoid surgery. PT-OP-G Mobility & Gait Start: 03/03/21 15:23 Freq: Status: Active Protocol: Document 03/04/21 07:30 AMB (Rec: 03/04/21 15:12 AMB [id number]) OP Gait Assessment Comments Gait Comments Slightly stiff gait with decreased trunk rotation PT-OP-J Posture/Palpation/Skin Start: 03/03/21 15:23 Freq: Status: Active Protocol: Document 03/04/21 07:30 AMB (Rec: 03/04/21 15:12 AMB [id number]) Posture Evaluation Comments Posture Comments Flat lumbar spine with mild forward head posture PT-OP-K Range of Motion Start: 03/03/21 15:23 Freq: Status: Active Protocol: Document 03/04/21 07:30 AMB (Rec: 03/04/21 15:12 AMB [id number]) Lumbar Spine Range of Motion Lumbar Spine Active Percentage Testing Position Standing Flexion 100 Extension 100 Lateral Flexion Left 75 Lateral Flexion Right 100 Comments slight tightness in the right with left sidebending PT-OP-L Special Tests Start: 03/03/21 15:23 Freq: Status: Active Protocol: Document 03/04/21 07:30 AMB (Rec: 03/04/21 15:12 AMB [id number]) Special Tests Lumbar Spine Special Tests Straight Leg Raise Test Results - Standing Flexion Test Results - Hip Special Tests Scour Test Test Results - AVANI Test Results - PT-OP-M Strength Start: 03/03/21 15:23 Freq: Status: Active Protocol: Document 03/04/21 07:30 AMB (Rec: 03/04/21 15:12 AMB [id number]) Hip Strength Hip Manual Muscle Testing Right Flexion (L2) 4 Good Extension (S1) 4 Good Abduction 4 Good Comments back pain with resisted R flexion and extension 5/5 knee flex/ext and ankle PF and DF bilat Left Flexion (L2) 4+ Good+ Extension (S1) 5 Normal Abduction 4+ Good+ PT-OP-Q Treatments Start: 03/03/21 15:23 Freq: Status: Active Protocol: Document 04/14/21 09:00 AMB (Rec: 04/14/21 15:29 AMB [id number]) Therapeutic Exercises Sitting Exercises 2 Sitting Exercise Name simulated kayak row with T band on ball 1 Sitting Exercise Name qatari ball 65cm Comments pelvic circles, LAQ, TKE, alternating march with UE and LE PT-OP-T Assessment and Plan Start: 03/03/21 15:23 Freq: Status: Active Protocol: Document 04/14/21 09:00 AMB (Rec: 04/14/21 09:43 AMB [id number]) Physical Therapy Assessment Goals Three Impairment HEP Short Term Goal (STG) Delilah will be independent and consistent with a HEP for her core stability. STG Duration 4 weeks Two Impairment Pain Short Term Goal (STG) Delilah will stand to make dinner for one hour without an increase in her baseline low back or midback pain. STG Duration 4 weeks Office Workforce Planner Goal (LTG) Delilah will lift 10# from the floor to waist height without an increase in pain. LTG Duration 6 weeks One Impairment Walking Short Term Goal (STG) Delilah will walk one mile over flat terrain without an increase in her baseline back pain. STG Duration 4 weeks Office Workforce Planner Goal (LTG) Delilah will return to walking 2 miles with hills without an increase in back pain. LTG Duration 6 weeks Assessment Summary Assessment Pt returns with MRI results, R sided arthritis and mild nerve compression. She has been able to return to mild walking- nothing steep and doing a little bit of yardwork . Physical Therapy Plan Frequency and Duration Frequency of Treatment 2x/Week Duration of Treatment 6 weeks Plan of Care Start Date 03/04/21 Plan of Care End Date 04/29/21 Next Visit Focus/Plan Next Note Type Treatment Note Next Visit Plan Assess response to flexibility , core initiation supine. Continue to progress core and hip stabilization strengthening. PT POC:Establish HEP for core stabilization, manual as needed, encourage walking program as tolerated stretching for midback.
--- NOTE | 2021-04-16 14:57 | PT.OTN ---
Current Diagnoses Other intervertebral disc degeneration, lumbar region (04/16/21) Strain of muscle, fascia and tendon of lower back, initial encounter (04/16/21) Physical Therapy Treatment Note PT-OP-A Visit Information Start: 03/03/21 15:23 Freq: Status: Active Protocol: Document 04/16/21 08:15 AMB (Rec: 04/16/21 08:44 AMB [id number]) Out-Patient Physical Therapy Visit Information Visit Information Visit Type Treatment Note Visit Start Time 08:15 Visit Stop Time 09:00 Total Visit Minutes 45 Visit Number 8 PT-OP-B Current Condition Start: 03/03/21 15:23 Freq: Status: Active Protocol: Document 03/04/21 07:32 AMB (Rec: 03/04/21 07:48 AMB [id number]) Current Condition History of Current Condition Onset Date 02/16/21 Current Complaints low back pain History of Current Condition 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 R sided difficulty with walking historically ( tightness/clicking in hip). Pain in shoulder blades with gardening started pain, and the next day low back pain increased. Previous baseline walking 2 miles with hills, now not walking. Standing for an extended period of time is a bit challenging. Denies radiating pain, numbness and tingling. Treatment Goals Patient/Caregiver Goals Return to walking without pain Prior Functional Status Baseline Function- ADL's Independent Baseline Function- Mobility Independent Current Functional Impairments (Reported) Functional Limitations- ADL's Has mostly been lying supine with ice pack Personal Factors Other Personal Factors That May Effect Pt reports 's health Therapy/Recovery issues make her anxious PT-OP-C Subjective Start: 03/03/21 15:23 Freq: Status: Active Protocol: Document 04/16/21 08:15 AMB (Rec: 04/16/21 08:44 AMB [id number]) OP-PT Subjective Patient Comments Patient Comments Pt is feeling pretty good. PT-OP-G Mobility & Gait Start: 03/03/21 15:23 Freq: Status: Active Protocol: Document 03/04/21 07:30 AMB (Rec: 03/04/21 15:12 AMB [id number]) OP Gait Assessment Comments Gait Comments Slightly stiff gait with decreased trunk rotation PT-OP-J Posture/Palpation/Skin Start: 03/03/21 15:23 Freq: Status: Active Protocol: Document 03/04/21 07:30 AMB (Rec: 03/04/21 15:12 AMB [id number]) Posture Evaluation Comments Posture Comments Flat lumbar spine with mild forward head posture PT-OP-K Range of Motion Start: 03/03/21 15:23 Freq: Status: Active Protocol: Document 03/04/21 07:30 AMB (Rec: 03/04/21 15:12 AMB [id number]) Lumbar Spine Range of Motion Lumbar Spine Active Percentage Testing Position Standing Flexion 100 Extension 100 Lateral Flexion Left 75 Lateral Flexion Right 100 Comments slight tightness in the right with left sidebending PT-OP-L Special Tests Start: 03/03/21 15:23 Freq: Status: Active Protocol: Document 03/04/21 07:30 AMB (Rec: 03/04/21 15:12 AMB [id number]) Special Tests Lumbar Spine Special Tests Straight Leg Raise Test Results - Standing Flexion Test Results - Hip Special Tests Scour Test Test Results - AVANI Test Results - PT-OP-M Strength Start: 03/03/21 15:23 Freq: Status: Active Protocol: Document 03/04/21 07:30 AMB (Rec: 03/04/21 15:12 AMB [id number]) Hip Strength Hip Manual Muscle Testing Right Flexion (L2) 4 Good Extension (S1) 4 Good Abduction 4 Good Comments back pain with resisted R flexion and extension 5/5 knee flex/ext and ankle PF and DF bilat Left Flexion (L2) 4+ Good+ Extension (S1) 5 Normal Abduction 4+ Good+ PT-OP-Q Treatments Start: 03/03/21 15:23 Freq: Status: Active Protocol: Document 04/16/21 08:15 AMB (Rec: 04/16/21 09:27 AMB [id number]) Cardio Equipment Treadmill Duration (Minutes) 10 Speed 1.8 Incline 0 Therapeutic Exercises Supine Exercises 1 Supine Exercise Name table top tap down Side bilateral Reps/Minutes 2x10 Sidelying Exercises 1 Sidelying Exercise Name clamshell Reps/Minutes 10 Sitting Exercises 1 Sitting Exercise Name surinamese ball 65cm Comments pelvic circles, LAQ, TKE, alternating march with UE and LE Other Exercises 1 Other Exercise Name downward dog, marce pose PT-OP-T Assessment and Plan Start: 03/03/21 15:23 Freq: Status: Active Protocol: Document 04/16/21 08:15 AMB (Rec: 04/16/21 08:44 AMB [id number]) Physical Therapy Assessment Goals Three Impairment HEP Short Term Goal (STG) Delilah will be independent and consistent with a HEP for her core stability. STG Duration 4 weeks Two Impairment Pain Short Term Goal (STG) Delilah will stand to make dinner for one hour without an increase in her baseline low back or midback pain. STG Duration 4 weeks Group Home Goal (LTG) Delilah will lift 10# from the floor to waist height without an increase in pain. LTG Duration 6 weeks One Impairment Walking Short Term Goal (STG) Delilah will walk one mile over flat terrain without an increase in her baseline back pain. STG Duration MET Group Home Goal (LTG) Delilah will return to walking 2 miles with hills without an increase in back pain. LTG Duration 6 weeks Assessment Summary Assessment Pt is doing well at this point , if she needs to rest, being on the floor is better than the bed. She did feel more tension in her back/ leg on the Right with more challenging core exercises but is doing well with stretches. Physical Therapy Plan Next Visit Focus/Plan Next Note Type Treatment Note Next Visit Plan Assess response to flexibility , core initiation supine. Continue to progress core and hip stabilization strengthening. REassess HEP: rows on t ball, clamshell with band, table top tap down
--- NOTE | 2021-04-21 13:03 | PT.OTN ---
Current Diagnoses Other intervertebral disc degeneration, lumbar region (04/21/21) Strain of muscle, fascia and tendon of lower back, initial encounter (04/21/21) Physical Therapy Treatment Note PT-OP-A Visit Information Start: 03/03/21 15:23 Freq: Status: Active Protocol: Document 04/21/21 12:17 SP (Rec: 04/21/21 15:14 SP [id number]) Out-Patient Physical Therapy Visit Information Visit Information Visit Type Treatment Note Visit Note POC exp 04/29, assess next tx. 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 R sided difficulty with walking historically ( tightness/clicking in hip). Pain in shoulder blades with gardening started pain, and the next day low back pain increased. Previous baseline walking 2 miles with hills, now not walking. Standing for an extended period of time is a bit challenging. Denies radiating pain, numbness and tingling. Treatment Goals Patient/Caregiver Goals Return to walking without pain Prior Functional Status Baseline Function- ADL's Independent Baseline Function- Mobility Independent Current Functional Impairments (Reported) Functional Limitations- ADL's Has mostly been lying supine with ice pack Personal Factors Other Personal Factors That May Effect Pt reports 's health Therapy/Recovery issues make her anxious PT-OP-C Subjective Start: 03/03/21 15:23 Freq: Status: Active Protocol: Document 04/21/21 12:17 SP (Rec: 04/21/21 15:14 SP [id number]) OP-PT Subjective Patient Comments Patient Comments Pt stated mid back tightness set back, did some weeding in long sitting with weed bucket between BLE Sat and Sun. PT-OP-G Mobility & Gait Start: 03/03/21 15:23 Freq: Status: Active Protocol: Document 03/04/21 07:30 AMB (Rec: 03/04/21 15:12 AMB [id number]) OP Gait Assessment Comments Gait Comments Slightly stiff gait with decreased trunk rotation PT-OP-J Posture/Palpation/Skin Start: 03/03/21 15:23 Freq: Status: Active Protocol: Document 03/04/21 07:30 AMB (Rec: 03/04/21 15:12 AMB [id number]) Posture Evaluation Comments Posture Comments Flat lumbar spine with mild forward head posture PT-OP-K Range of Motion Start: 03/03/21 15:23 Freq: Status: Active Protocol: Document 03/04/21 07:30 AMB (Rec: 03/04/21 15:12 AMB [id number]) Lumbar Spine Range of Motion Lumbar Spine Active Percentage Testing Position Standing Flexion 100 Extension 100 Lateral Flexion Left 75 Lateral Flexion Right 100 Comments slight tightness in the right with left sidebending PT-OP-L Special Tests Start: 03/03/21 15:23 Freq: Status: Active Protocol: Document 03/04/21 07:30 AMB (Rec: 03/04/21 15:12 AMB [id number]) Special Tests Lumbar Spine Special Tests Straight Leg Raise Test Results - Standing Flexion Test Results - Hip Special Tests Scour Test Test Results - AVANI Test Results - PT-OP-M Strength Start: 03/03/21 15:23 Freq: Status: Active Protocol: Document 03/04/21 07:30 AMB (Rec: 03/04/21 15:12 AMB [id number]) Hip Strength Hip Manual Muscle Testing Right Flexion (L2) 4 Good Extension (S1) 4 Good Abduction 4 Good Comments back pain with resisted R flexion and extension 5/5 knee flex/ext and ankle PF and DF bilat Left Flexion (L2) 4+ Good+ Extension (S1) 5 Normal Abduction 4+ Good+ PT-OP-Q Treatments Start: 03/03/21 15:23 Freq: Status: Active Protocol: Document 04/21/21 12:17 SP (Rec: 04/21/21 15:14 SP [id number]) Therapeutic Exercises Sidelying Exercises open book Sidelying Exercise Name added to HEP Side bilateral Reps/Minutes x5 Standing Exercises D2 flexion bilateral Standing Exercise Name w/ trunk rotation- added to HEP Side bilateral Resistance TB #1 Reps/Minutes x10 Comments cued trunk mechanics con/ eccentric- painfree D2 flexion Standing Exercise Name single arm- added to HEP Side bilateral Resistance Tb #2 Equipment Used anchored under opposite mervin Reps/Minutes x10 reps Comments cued trunk and scapular ROM Chops Standing Exercise Name standing and 1/2 kneel: added to HEP Side bilateral Resistance TB #2 Reps/Minutes x10 Comments cued trunk mechanics con/ eccentric- pain free D1 ext Standing Exercise Name single arm- added to HEP Side bilateral Resistance Tb #2 Reps/Minutes x8 each Comments cued forward pelvic, core fac and allow slow controlled move 1 Standing Exercise Name t band rows- reviewed HEP Side bilateral Resistance #3 Reps/Minutes 2x10 Comments vc TA, soft knees, relax shoulders Other Exercises self stms ball wall Other Exercise Name mid thoracic, LS Equipment Used racquetball on wall Reps/Minutes 30 Self-Care/Home Management Treatment Education Patient Education Body Mechanics,Pain Management ,Posture Other Education 1. Education on body mechanics with sitting, 1/2 kneel, tall kneel w/ pad behind and under knees, seated on chair. 2. mechanics lifting kayak ( assimulation using Fitter) off floor and reaching overhead with proper back alignment for back health. Cued for PPT and scap stabilization- painfree. PT-OP-T Assessment and Plan Start: 03/03/21 15:23 Freq: Status: Active Protocol: Document 04/21/21 12:17 SP (Rec: 04/21/21 15:14 SP [id number]) Physical Therapy Assessment Goals Three Impairment HEP Short Term Goal (STG) Delilah will be independent and consistent with a HEP for her core stability. STG Duration 4 weeks Two Impairment Pain Short Term Goal (STG) Delilah will stand to make dinner for one hour without an increase in her baseline low back or midback pain. STG Duration 4 weeks Corporate Compliance Manager Goal (LTG) Delilah will lift 10# from the floor to waist height without an increase in pain. LTG Duration 6 weeks One Impairment Walking Short Term Goal (STG) Delilah will walk one mile over flat terrain without an increase in her baseline back pain. STG Duration MET Skilled Nursing Goal (LTG) Delilah will return to walking 2 miles with hills without an increase in back pain. LTG Duration 6 weeks Assessment Summary Assessment Pt responded well to ther act education and performance with good body mechanics during ADLs identified and progressed diagonal core/ trunk strengtheningto support rotational strength and mobility that can carryover to change postioning of weeding and mobilizing her kayak onto roof car with good feedback results. Physical Therapy Plan Frequency and Duration Frequency of Treatment 2x/Week Duration of Treatment 6 weeks Plan of Care Start Date 03/04/21 Plan of Care End Date 04/29/21 Therapeutic Interventions Therapeutic Interventions Home Exercise Program,Joint Mobilizations,Manual Therapy, Neuromuscular Re-education, Self-Care/Home Management,Soft Tissue Mobilization, Therapeutic Activities, Therapeutic Exercises Modalities Cold Pack/Ice Massage,Electric Stimulation,Hot Packs Next Visit Focus/Plan Next Note Type Treatment Note Next Visit Plan Assess response to body mechanics, progressed diagonal strengthening. POC: Continue to progress core and hip stabilization strengthening. REassess HEP: rows on t ball, clamshell with band, table top tap down
--- NOTE | 2021-04-23 09:48 | PT.OTN ---
Current Diagnoses Other intervertebral disc degeneration, lumbar region (04/23/21) Strain of muscle, fascia and tendon of lower back, initial encounter (04/23/21) Physical Therapy Treatment Note PT-OP-A Visit Information Start: 03/03/21 15:23 Freq: Status: Active Protocol: Document 04/23/21 09:05 SP (Rec: 04/23/21 11:40 SP [id number]) Out-Patient Physical Therapy Visit Information Visit Information Visit Type Treatment Note Visit Note POC exp 04/29 Pt 5 min late for appt Visit Start Time 09:05 Visit Stop Time 09:48 Total Visit Minutes 43 Visit Number 10 Number of DOCTOR NATUROPATHIC Visits 2 PT-OP-B Current Condition Start: 03/03/21 15:23 Freq: Status: Active Protocol: Document 03/04/21 07:32 AMB (Rec: 03/04/21 07:48 AMB [id number]) Current Condition History of Current Condition Onset Date 02/16/21 Current Complaints low back pain History of Current Condition 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 R sided difficulty with walking historically ( tightness/clicking in hip). Pain in shoulder blades with gardening started pain, and the next day low back pain increased. Previous baseline walking 2 miles with hills, now not walking. Standing for an extended period of time is a bit challenging. Denies radiating pain, numbness and tingling. Treatment Goals Patient/Caregiver Goals Return to walking without pain Prior Functional Status Baseline Function- ADL's Independent Baseline Function- Mobility Independent Current Functional Impairments (Reported) Functional Limitations- ADL's Has mostly been lying supine with ice pack Personal Factors Other Personal Factors That May Effect Pt reports 's health Therapy/Recovery issues make her anxious PT-OP-C Subjective Start: 03/03/21 15:23 Freq: Status: Active Protocol: Document 04/23/21 09:05 SP (Rec: 04/23/21 11:40 SP [id number]) OP-PT Subjective Patient Comments Patient Comments Pt states doing well, wants one more appt to be sure no questions with HEP for [place] next week with PT . Patient Reported Progress Improving PT-OP-G Mobility & Gait Start: 03/03/21 15:23 Freq: Status: Active Protocol: Document 03/04/21 07:30 AMB (Rec: 03/04/21 15:12 AMB [id number]) OP Gait Assessment Comments Gait Comments Slightly stiff gait with decreased trunk rotation PT-OP-J Posture/Palpation/Skin Start: 03/03/21 15:23 Freq: Status: Active Protocol: Document 03/04/21 07:30 AMB (Rec: 03/04/21 15:12 AMB [id number]) Posture Evaluation Comments Posture Comments Flat lumbar spine with mild forward head posture PT-OP-K Range of Motion Start: 03/03/21 15:23 Freq: Status: Active Protocol: Document 03/04/21 07:30 AMB (Rec: 03/04/21 15:12 AMB [id number]) Lumbar Spine Range of Motion Lumbar Spine Active Percentage Testing Position Standing Flexion 100 Extension 100 Lateral Flexion Left 75 Lateral Flexion Right 100 Comments slight tightness in the right with left sidebending PT-OP-L Special Tests Start: 03/03/21 15:23 Freq: Status: Active Protocol: Document 03/04/21 07:30 AMB (Rec: 03/04/21 15:12 AMB [id number]) Special Tests Lumbar Spine Special Tests Straight Leg Raise Test Results - Standing Flexion Test Results - Hip Special Tests Scour Test Test Results - AVANI Test Results - PT-OP-M Strength Start: 03/03/21 15:23 Freq: Status: Active Protocol: Document 03/04/21 07:30 AMB (Rec: 03/04/21 15:12 AMB [id number]) Hip Strength Hip Manual Muscle Testing Right Flexion (L2) 4 Good Extension (S1) 4 Good Abduction 4 Good Comments back pain with resisted R flexion and extension 5/5 knee flex/ext and ankle PF and DF bilat Left Flexion (L2) 4+ Good+ Extension (S1) 5 Normal Abduction 4+ Good+ PT-OP-Q Treatments Start: 03/03/21 15:23 Freq: Status: Active Protocol: Document 04/23/21 09:05 SP (Rec: 04/23/21 11:40 SP [id number]) Therapeutic Exercises Sidelying Exercises open book Sidelying Exercise Name reviewed HEP Side bilateral Reps/Minutes x5 Standing Exercises D2 flexion bilateral Standing Exercise Name w/ trunk rotation- added to HEP Side bilateral Resistance TB #1 Reps/Minutes x10 Comments cued trunk mechanics con/ eccentric- painfree D2 flexion Standing Exercise Name single arm- added to HEP Side bilateral Resistance Tb #2 Equipment Used anchored under opp foot vs door Reps/Minutes x10 reps Comments cued trunk and scapular ROM Chops Standing Exercise Name stand and 1/2 kneel: reviewed HEP Side bilateral Resistance TB #2 Reps/Minutes x10 Comments cued neutral pelvis, hip hinge rotate opp knee, knee behind toes: pain free D1 ext Standing Exercise Name single arm- added to HEP Side bilateral Resistance Tb #2 Reps/Minutes x8 each Comments good scap stab, neutral pelvis with eccentric stretch Other Exercises quadruped single arm rows Other Exercise Name floor > chair Side bilateral Resistance reviewed HEP Reps/Minutes x10 Comments cued stance LE bent, SA row added tricep ext 1 Other Exercise Name downward dog, marce pose Reps/Minutes review HEP PT-OP-T Assessment and Plan Start: 03/03/21 15:23 Freq: Status: Active Protocol: Document 04/23/21 09:05 SP (Rec: 04/23/21 11:40 SP [id number]) Physical Therapy Assessment Goals Three Impairment HEP Short Term Goal (STG) Delilah will be independent and consistent with a HEP for her core stability. 04/23/21 progressed, occasional cuing for decrease UT recruitment. STG Duration 4 weeks Two Impairment Pain Short Term Goal (STG) Delilah will stand to make dinner for one hour without an increase in her baseline low back or midback pain. 04/23/21: 0/10 cooking Goal met STG Duration goal met Retirement Goal (LTG) Delilah will lift 10# from the floor to waist height without an increase in pain. 04/23/21 goal met LTG Duration goal met One Impairment Walking Short Term Goal (STG) Delilah will walk one mile over flat terrain without an increase in her baseline back pain. STG Duration MET Edging Machine Feeder Goal (LTG) Delilah will return to walking 2 miles with hills without an increase in back pain. 04/23/21 progressing: near airport goal to assess before next tx. LTG Duration 6 weeks 04/23/21 progressing Assessment Summary Assessment Pt responded well to HEP review, cues for trunk and knee alignment with good muscle effort. Improved scap stabilization and no UT recruitment. Pt states is performing stretches after newly added functional strengthening. Physical Therapy Plan Frequency and Duration Frequency of Treatment 2x/Week Duration of Treatment 6 weeks Plan of Care Start Date 03/04/21 Plan of Care End Date 04/29/21 Therapeutic Interventions Therapeutic Interventions Home Exercise Program,Joint Mobilizations,Manual Therapy, Neuromuscular Re-education, Self-Care/Home Management,Soft Tissue Mobilization, Therapeutic Activities, Therapeutic Exercises Modalities Cold Pack/Ice Massage,Electric Stimulation,Hot Packs Next Visit Focus/Plan Next Note Type Treatment Note Next Visit Plan Assess response to functional rotation strengthening and review HEP rows on t ball, clamshell with band, table top tap down. POC: 1 more appt then pt ready for DC added tx with PT.
--- NOTE | 2021-04-30 15:56 | PT.OPPOC ---
Physical, Occupational & Speech Therapy At [facility] Current Diagnoses Other intervertebral disc degeneration, lumbar region (04/30/21) Strain of muscle, fascia and tendon of lower back, initial encounter (04/30/21) Visit Care Team Role Provider Type Grace Ruvalcaba PA-C Primary Care Provider Non-Staff Specialty: Internal Medicine Address: [address] [place] [address], [id number] Email: [email or web address] Reymundo Ryan MD Attending Provider Physician Referring Provider Specialty: Physical Medicine and Rehab Address: [address] [place] [address], [id number] Email: [email or web address] Plan Of Care PT-OP-T Assessment and Plan Start: 03/03/21 15:23 Freq: Status: Active Protocol: Document 04/30/21 13:30 AMB (Rec: 04/30/21 13:54 AMB [id number]) Physical Therapy Assessment Goals Three Impairment HEP Short Term Goal (STG) Delilah will be independent and consistent with a HEP for her core stability. 04/23/21 progressed, occasional cuing for decrease UT recruitment. STG Duration met Two Impairment Pain Short Term Goal (STG) Delilah will stand to make dinner for one hour without an increase in her baseline low back or midback pain. 04/23/21: 0/10 cooking Goal met STG Duration goal met Galley Hand Goal (LTG) Delilah will lift 10# from the floor to waist height without an increase in pain. 04/23/21 goal met LTG Duration goal met One Impairment Walking Short Term Goal (STG) Delilah will walk one mile over flat terrain without an increase in her baseline back pain. STG Duration MET Galley Hand Goal (LTG) Delilah will return to walking 2 miles with hills without an increase in back pain. 04/23/21 progressing: near airport goal to assess before next tx. LTG Duration meT Assessment Summary Assessment Delilah states she is ready for d/c. She has been able to return to her walking. She has not tried kayaking yet, but has been able to return to her yoga and feels like she can modify it as necessary. She has been able to return to [facility] as long as she is mindful of her positioning and her posture. All questions regarding her HEP have been answered. Physical Therapy Plan Frequency and Duration Frequency of Treatment 1x/Week Duration of Treatment 1 WEEK Plan of Care Start Date 04/30/21 Plan of Care End Date 05/07/21 Therapeutic Interventions Therapeutic Interventions Home Exercise Program,Joint Mobilizations,Manual Therapy, Neuromuscular Re-education, Self-Care/Home Management,Soft Tissue Mobilization, Therapeutic Activities, Therapeutic Exercises Modalities Cold Pack/Ice Massage,Electric Stimulation,Hot Packs Discharge Physical Therapy Discharge Reasons Goals Met Plan of Care Dates Plan of Care Start Date 04/30/21 Plan of Care End Date 05/07/21 Electronically Signed by: Maria Elena Mora, PT 04/30/21 0385 Please Sign and Return: I have reviewed this Plan of Care and certify that the skilled therapy services above are required to meet the patient?s needs. Physician Signature Date Printed Name and Credentials Clinical Instructor Signature Printed Name and Credentials
--- NOTE | 2021-04-30 15:57 | PT.OTN ---
Current Diagnoses Other intervertebral disc degeneration, lumbar region (04/30/21) Strain of muscle, fascia and tendon of lower back, initial encounter (04/30/21) Physical Therapy Treatment Note PT-OP-A Visit Information Start: 03/03/21 15:23 Freq: Status: Active Protocol: Document 04/30/21 13:30 AMB (Rec: 04/30/21 13:54 AMB [id number]) Out-Patient Physical Therapy Visit Information Visit Information Visit Type Progress Note Visit Start Time 13:30 Visit Stop Time 14:15 Total Visit Minutes 45 Visit Number 11 PT-OP-B Current Condition Start: 03/03/21 15:23 Freq: Status: Active Protocol: Document 03/04/21 07:32 AMB (Rec: 03/04/21 07:48 AMB [id number]) Current Condition History of Current Condition Onset Date 02/16/21 Current Complaints low back pain History of Current Condition 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 R sided difficulty with walking historically ( tightness/clicking in hip). Pain in shoulder blades with gardening started pain, and the next day low back pain increased. Previous baseline walking 2 miles with hills, now not walking. Standing for an extended period of time is a bit challenging. Denies radiating pain, numbness and tingling. Treatment Goals Patient/Caregiver Goals Return to walking without pain Prior Functional Status Baseline Function- ADL's Independent Baseline Function- Mobility Independent Current Functional Impairments (Reported) Functional Limitations- ADL's Has mostly been lying supine with ice pack Personal Factors Other Personal Factors That May Effect Pt reports 's health Therapy/Recovery issues make her anxious PT-OP-C Subjective Start: 03/03/21 15:23 Freq: Status: Active Protocol: Document 04/30/21 13:30 AMB (Rec: 04/30/21 13:54 AMB [id number]) OP-PT Subjective Patient Comments Patient Comments HEP is going well. PT-OP-G Mobility & Gait Start: 03/03/21 15:23 Freq: Status: Active Protocol: Document 03/04/21 07:30 AMB (Rec: 03/04/21 15:12 AMB [id number]) OP Gait Assessment Comments Gait Comments Slightly stiff gait with decreased trunk rotation PT-OP-J Posture/Palpation/Skin Start: 03/03/21 15:23 Freq: Status: Active Protocol: Document 03/04/21 07:30 AMB (Rec: 03/04/21 15:12 AMB [id number]) Posture Evaluation Comments Posture Comments Flat lumbar spine with mild forward head posture PT-OP-K Range of Motion Start: 03/03/21 15:23 Freq: Status: Active Protocol: Document 04/30/21 13:55 AMB (Rec: 04/30/21 14:02 AMB [id number]) Lumbar Spine Range of Motion Lumbar Spine Active Percentage Flexion 100 Extension 100 Lateral Flexion Left 100 Lateral Flexion Right 100 Comments no real tightness PT-OP-L Special Tests Start: 03/03/21 15:23 Freq: Status: Active Protocol: Document 03/04/21 07:30 AMB (Rec: 03/04/21 15:12 AMB [id number]) Special Tests Lumbar Spine Special Tests Straight Leg Raise Test Results - Standing Flexion Test Results - Hip Special Tests Scour Test Test Results - AVANI Test Results - PT-OP-M Strength Start: 03/03/21 15:23 Freq: Status: Active Protocol: Document 04/30/21 13:55 AMB (Rec: 04/30/21 14:02 AMB [id number]) Hip Strength Hip Manual Muscle Testing Right Flexion (L2) 4+ Good+ Extension (S1) 4+ Good+ Abduction 4+ Good+ PT-OP-Q Treatments Start: 03/03/21 15:23 Freq: Status: Active Protocol: Document 04/30/21 13:30 AMB (Rec: 04/30/21 15:52 AMB [id number]) Therapeutic Exercises Sidelying Exercises open book Sidelying Exercise Name reviewed HEP Side bilateral Reps/Minutes x5 Sitting Exercises 1 Sitting Exercise Name pelvic tilt in seated for return to mountain biking Standing Exercises 2 Standing Exercise Name chin tuck for posterior neck stretch Reps/Minutes 2x10 1 Standing Exercise Name t band rows- reviewed HEP Side bilateral Resistance #3 Reps/Minutes 2x10 Comments vc TA, soft knees, relax shoulders Other Exercises 1 Other Exercise Name downward dog, marce pose Reps/Minutes review HEP PT-OP-T Assessment and Plan Start: 03/03/21 15:23 Freq: Status: Active Protocol: Document 04/30/21 13:30 AMB (Rec: 04/30/21 13:54 AMB [id number]) Physical Therapy Assessment Goals Three Impairment HEP Short Term Goal (STG) Delilah will be independent and consistent with a HEP for her core stability. 04/23/21 progressed, occasional cuing for decrease UT recruitment. STG Duration met Two Impairment Pain Short Term Goal (STG) Delilah will stand to make dinner for one hour without an increase in her baseline low back or midback pain. 04/23/21: 0/10 cooking Goal met STG Duration goal met Shelter Goal (LTG) Delilah will lift 10# from the floor to waist height without an increase in pain. 04/23/21 goal met LTG Duration goal met One Impairment Walking Short Term Goal (STG) Delilah will walk one mile over flat terrain without an increase in her baseline back pain. STG Duration MET Shelter Goal (LTG) Delilah will return to walking 2 miles with hills without an increase in back pain. 04/23/21 progressing: near airport goal to assess before next tx. LTG Duration meT Assessment Summary Assessment Delilah states she is ready for d/c. She has been able to return to her walking. She has not tried kayaking yet, but has been able to return to her yoga and feels like she can modify it as necessary. She has been able to return to yardowork as long as she is mindful of her positioning and her posture. All questions regarding her HEP have been answered. Physical Therapy Plan Frequency and Duration Frequency of Treatment 1x/Week Duration of Treatment 1 WEEK Plan of Care Start Date 04/30/21 Plan of Care End Date 05/07/21 Therapeutic Interventions Therapeutic Interventions Home Exercise Program,Joint Mobilizations,Manual Therapy, Neuromuscular Re-education, Self-Care/Home Management,Soft Tissue Mobilization, Therapeutic Activities, Therapeutic Exercises Modalities Cold Pack/Ice Massage,Electric Stimulation,Hot Packs Discharge Physical Therapy Discharge Reasons Goals Met
== END 2021-05-01 08:16 | disposition home or self-care (01) ==
LOC: PHYS 13:30
PROVIDERS: PCP Physician Assistant; Referring Provider Physical Medicine & Rehabilitation Pain Medicine; Visit Provider Physical Medicine & Rehabilitation Pain Medicine
DX: S39.012A Strain of muscle, fascia and tendon of lower back, initial encounter (principal); M51.36 Other intervertebral disc degeneration, lumbar region
CPT/HCPCS: 97014; 97110; 97161; 97535; G0283

== ENCOUNTER 2022-02-13 09:38 | Emergency (ER) | payer OTHER, SELFPAY ==
[2022-02-13 09:54] VITALS: BP 208/103; PULSE 90; RESP 14; TEMP 37.3; O2SAT 99; BMI 26.3
[2022-02-13 10:39] VITALS: PULSE 86; O2SAT 98
[2022-02-13 10:41] VITALS: BP 184/89; PULSE 86; O2SAT 99
[2022-02-13 12:40] VITALS: BP 170/80; PULSE 85; RESP 18; O2SAT 98
[2022-02-13] MEDS: KETOROLAC 10 MG TABLET PO (13:00)
[2022-02-13] MEDS: LORATADINE 10 MG TABLET PO (13:00)
[2022-02-13] MEDS: FAMOTIDINE 20 MG TABLET PO (13:00)
[2022-02-13] MEDS: predniSONE 20 MG TABLET 40 MG PO (13:01)
--- NOTE | 2022-02-13 14:25 | ED.SKABFB ---
HPI - Skin/Abscess/Foreign Bdy <AIMEE Covington - Last Filed: 02/13/22 14:40> General Chief complaint: Skin/Abscess/Foreign Body Stated complaint: rash on arms/face Time Seen by Provider: 02/13/22 12:05 Source: patient Mode of arrival: Ambulatory Limitations: no limitations History of Present Illness HPI narrative: This is a 7-year-old female who presents to the emergency department two days after she was trimming Juniper trees in her yd and now has erythematous papules all over her arms and upper neck and other areas of exposure from her your work. She states that she has tried hydrocortisone cream topically, calamine, Benadryl and her symptoms have not come down yet. She states that she has had these symptoms in the past and she required steroid pack. She denies any shortness of breath, coughing, difficulty breathing, wheezing. Related Data Previous Rx's Medication Instructions Recorded cetirizine 10 mg tablet 10 mg PO DAILY #20 tabs 02/13/22 famotidine 20 mg tablet 20 mg PO DAILY #14 tabs 02/13/22 hydrocortisone 2.5 % topical 1 applic topical BID PRN itching 02/13/22 ointment #20 grams hydroxyzine pamoate 25 mg capsule 25 mg PO BID PRN itching #20 caps 02/13/22 prednisone 20 mg tablet 40 mg PO DAILY 5 days #10 tabs 02/13/22 Allergies Allergy/AdvReac Type Severity Reaction Status Date / Time No Known Drug Allergies Allergy Verified 02/13/22 09:59 Review of Systems <AIMEE Covington - Last Filed: 02/13/22 14:40> Review of Systems Narrative: General: denies fever, chills Head/Neck: denies headache, neck pain Eyes: denies visual changes, eye pain Cardio: denies chest pain, palpitations Respiratory: denies shortness of breath, cough GI: denies abdominal pain, nausea, vomiting, or diarrhea : denies dysuria, hematuria or flank pain MSK: denies new joint pain, muscle weakness or swelling Skin: Endorses red itchy papules all over her arms which feel like hives and upper neck and chest is that was outside of her T-shirt Neuro: denies numbness, tingling, dizziness Patient History <AIMEE Covington - Last Filed: 02/13/22 14:40> Medical History Laceration of left hand Social History Smoking Status: Former smoker Smoking Status: Former smoker alcohol intake frequency: 3 or more drinks per day Alcohol type: beer Substance Use Type: does not use Exam <AIMEE Covington - Last Filed: 02/13/22 14:40> Narrative Exam Narrative: Independently reviewed vitals signs and nursing notes. General: cooperative, comfortable, in no acute distress, well groomed Head: atraumatic, symmetrical facial expressions Neck: supple, erythematous papules with pruitis Eyes: equal round and reactive, EOMI, conjunctiva normal Nose: nares patent, no rhinorrhea Mouth/Throat: moist mucus membranes Cardiovascular: regular rate and rhythm, no peripheral edema, warm extremities Respiratory: normal effort, able to speak in complete sentences, no audible wheezing, stridor, or rales. No retractions or tachypnea. GI: abdomen soft, nontender to palpation, nondistended, no masses, no exquisite tenderness with exam, without guarding or rebound. MSK: moves all extremities, neurovascularly intact, no weakness, normal tone Skin: brisk capillary refill, papular, erythematous rash on bilateral upper extremities, upper chest and neck, associated with small scratches/abrasions, no erythema Neuro: normal speech and cognition, A&O x3 Psych: mental status is grossly normal, congruent mood, normal affect, pleasant and cooperative Initial Vital Signs Initial Vital Signs: Vital Signs Temperature 99.2 F 02/13/22 09:54 Pulse Rate 90 02/13/22 09:54 Respiratory Rate 14 02/13/22 09:54 Blood Pressure 208/103 H 02/13/22 09:54 Pulse Oximetry 99 02/13/22 09:54 Oxygen Delivery Method 02/13/22 09:54 <Kaia Hill DO - Last Filed: 02/13/22 18:19> Initial Vital Signs Initial Vital Signs: Vital Signs Temperature 99.2 F 02/13/22 09:54 Pulse Rate 90 02/13/22 09:54 Respiratory Rate 14 02/13/22 09:54 Blood Pressure 208/103 H 02/13/22 09:54 Pulse Oximetry 99 02/13/22 09:54 Oxygen Delivery Method 02/13/22 09:54 Course <AIMEE Covington - Last Filed: 02/13/22 14:40> Orders Ordered: Discontinued Medications Famotidine (Famotidine 20 Mg Tablet) 20 mg PO BID ONE Stop: 02/13/22 12:52 Last Admin: 02/13/22 13:00 Dose: 20 mg Documented By: EVON Ketorolac Tromethamine (Ketorolac 10 Mg Tablet) 10 mg PO NOW ONE Stop: 02/13/22 12:51 Last Admin: 02/13/22 13:00 Dose: 10 mg Documented By: EVON Loratadine (Loratadine 10 Mg Tablet) 10 mg PO NOW ONE Stop: 02/13/22 12:51 Last Admin: 02/13/22 13:00 Dose: 10 mg Documented By: EVON Pantoprazole Sodium (Pantoprazole Dr 20 Mg Tablet) 20 mg PO NOW ONE Stop: 02/13/22 12:50 Prednisone (Prednisone 20 Mg Tablet) 40 mg PO NOW ONE Stop: 02/13/22 12:39 Last Admin: 02/13/22 13:01 Dose: 40 mg Documented By: EVON Vital Signs Vital signs: Vital Signs - 8 hr 02/13/22 12:40 02/13/22 10:39 02/13/22 10:41 Pulse Rate 85 86 Respiratory Rate 18 Blood Pressure 170/80 H 184/89 H Pulse Oximetry 98 98 02/13/22 10:41 Pulse Rate 86 Respiratory Rate Blood Pressure Pulse Oximetry 99 <Kaia Hill DO - Last Filed: 02/13/22 18:19> Orders Ordered: Discontinued Medications Famotidine (Famotidine 20 Mg Tablet) 20 mg PO BID ONE Stop: 02/13/22 12:52 Last Admin: 02/13/22 13:00 Dose: 20 mg Documented By: EVON Ketorolac Tromethamine (Ketorolac 10 Mg Tablet) 10 mg PO NOW ONE Stop: 02/13/22 12:51 Last Admin: 02/13/22 13:00 Dose: 10 mg Documented By: EVON Loratadine (Loratadine 10 Mg Tablet) 10 mg PO NOW ONE Stop: 02/13/22 12:51 Last Admin: 02/13/22 13:00 Dose: 10 mg Documented By: EVON Pantoprazole Sodium (Pantoprazole Dr 20 Mg Tablet) 20 mg PO NOW ONE Stop: 02/13/22 12:50 Prednisone (Prednisone 20 Mg Tablet) 40 mg PO NOW ONE Stop: 02/13/22 12:39 Last Admin: 02/13/22 13:01 Dose: 40 mg Documented By: EVON Vital Signs Vital signs: Vital Signs - 8 hr 02/13/22 12:40 02/13/22 10:39 02/13/22 10:41 Pulse Rate 85 86 Respiratory Rate 18 Blood Pressure 170/80 H 184/89 H Pulse Oximetry 98 98 02/13/22 10:41 Pulse Rate 86 Respiratory Rate Blood Pressure Pulse Oximetry 99 MDM - Skin/Abscess/Foreign Bdy <AIMEE Covington - Last Filed: 02/13/22 14:40> RODNEY Narrative Medical decision making narrative: This is a 7-year-old female who presents to the emergency department with a pruritic, papular rash on her bilateral upper extremities, exposed upper chest and neck after she was trimming Juniper trees in her yard two days ago. Patient has had one episode of this in the past and states that she required allergy medications until she improves. Patient had been trying half a dose of Benadryl for her symptoms which improved her pruritus slightly, she denies taking her Claritin today. She denies any history of COPD, smoking, asthma, denies any shortness of breath, chest pain or wheezing. She states that it is uncomfortable and irritated but denies any severe symptoms. She was treated in the emergency department with prednisone, famotidine, loratadine, and Toradol for his symptoms. She was prescribed five days of oral prednisone, topical hydrocortisone ointment, famotidine, cetirizine and hydroxyzine for her symptoms. Patient was given strict return precautions for any worsening of her symptoms, she was afebrile, without any distress today, from sounds are clear throughout without any increased work of breathing. This is most likely is allergic/contact dermatitis. Patient is appropriate and amenable to discharge home. Vital signs are stable on repeat examination is unremarkable. Patient has been informed of results. Patient has been given strict return to ER precautions for any new or worsening symptoms. Patient understands to follow up closely with outpatient providers as instructed. Patient understands plan and agrees to discharge home. All questions and concerns answered at this time. Discharge Plan Departure Patient Disposition: Home Clinical Impression: Allergic dermatitis, Urticaria Instructions: Contact Dermatitis, DI for Hives Activity Restrictions/Additional Instructions: *You have been diagnosed with allergic dermatitis likely from the Patricia of her plant. Please take steroid for the next five days, you can take cetirizine to help with her symptoms, hydroxyzine as needed during the daytime to help with any itching, and a topical steroid to help all of this, down. Please use a moisturizing [place], I hope that you feel better by tonight. Please take the famotidine for the next 1-2 weeks, Zyrtec once daily until rash is gone, and the steroids for the next five days. Thank you for trusting us with your care, I hope you feel better soon, please return for any worsening of your symptoms. *What to do: *Please continue to take your regular medications as directed. [x ] New medication prescriptions sent to your pharmacy: [ [facility]] [ ] New medication written as a paper prescription [ ] No new medications given *Please follow up with your primary care provider in 2-3 days, call for an appointment. Let them know you were seen in the Emergency Department and that we asked that you be seen for follow-up. We will electronically transmit a record of today's note if your PCP is in our system *If you do not have a primary care provider please contact [phone] to establish care with one of the [facility] primary care providers. *Return to Emergency Department if you should have any new, worsening or concerning symptoms, such as [fever greater than 101F, chills, worsening pain, persistent vomiting or other bothersome symptoms] Prescriptions: New famotidine 20 mg tablet 20 mg PO DAILY Qty: 14 0RF prednisone 20 mg tablet 40 mg PO DAILY 5 Days Qty: 10 0RF cetirizine 10 mg tablet 10 mg PO DAILY Qty: 20 0RF hydrocortisone 2.5 % ointment 1 applic topical BID PRN (Reason: itching) Qty: 20 0RF hydroxyzine pamoate 25 mg capsule 25 mg PO BID PRN (Reason: itching) Qty: 20 0RF Referrals: Grace Ruvalcaba PA-C [Primary Care Provider] - Visit Report Forms: Patient Portal/API <Kaia Hill DO - Last Filed: 02/13/22 18:19> Cosign ED Attending Cosignature Attestation: I was immediately available in the department for consultation. Documentation has been reviewed.
== END 2022-02-13 13:08 | disposition home or self-care (01) ==
PROVIDERS: Emergency Provider Nurse Practitioner Critical Care Medicine; PCP Physician Assistant
DX: L23.9 Allergic contact dermatitis, unspecified cause (principal)
CPT/HCPCS: 99283; A9270

== ENCOUNTER → 2022-07-02 15:00 | Outpatient (CLI) | payer OTHER, SELFPAY ==
--- NOTE | 2022-07-02 | DI.MRI.S_ITS ---
PROCEDURE: MR CERVICAL SPINE WO CON INDICATIONS: Radiculopathy, cervical region TECHNIQUE: Noncontrast sagittal T1 spin echo and T2 fast spin echo, sagittal STIR, foraminal oblique sagittal T2 fast spin echo, and axial gradient echo or T2 fast spin echo through the cervical spine. COMPARISON: [facility], CR, XR CERVICAL SPINE 2 OR 3 VIEWS, 06/29/2022, 14:06. FINDINGS: Image quality: Excellent. Alignment and Curvature: There is normal bony alignment. Bone Marrow: Marrow demonstrates normal overall signal. Spinal Cord: Visualized spinal cord has normal size and signal. No cerebellar tonsillar herniation. Paraspinous Soft Tissues: No paravertebral masses. Prevertebral soft tissues are normal in thickness. C2-C3: No significant disc bulge. The foramina and central canal are patent. C3-C4: No significant disc bulge. The foramina and central canal are patent. C4-C5: No significant disc bulge. The foramina and central canal are patent. C5-C6: No significant disc bulge. The foramina and central canal are patent. C6-C7: Diffuse disc bulge with disc osteophytes and a small right paracentral protrusion and right facet hypertrophy causes moderate right foraminal stenosis and mild left foraminal stenosis. The central canal is patent. C7-T1: No significant disc bulge. The foramina and central canal are patent. IMPRESSION: 1. Degenerative disc disease at C6-7 with a small right paracentral protrusion and right facet hypertrophy causing moderate right and mild left foraminal stenosis. 2. No central canal stenosis Dictated by: Washington Perkins M.D. on 07/02/2022 at 16:44 Approved by: Washington Perkins M.D. on 07/02/2022 at 16:56
== END ==
PROVIDERS: PCP Physician Assistant; Referring Provider Physical Medicine & Rehabilitation Pain Medicine; Visit Provider Physical Medicine & Rehabilitation Pain Medicine
DX: M50.123 Cervical disc disorder at C6-C7 level with radiculopathy (principal)
CPT/HCPCS: 72141

== ENCOUNTER → 2025-01-29 08:11 | Outpatient (CLI) | payer OTHER, SELFPAY ==
--- NOTE | 2025-01-29 08:13 | DI.RAD.S_ITS ---
PROCEDURE: XR LUMBAR SPINE MIN 4V INDICATIONS: BACK PAIN TECHNIQUE: 5 views of the lumbar spine were acquired, including bilateral oblique views. COMPARISON: None. FINDINGS: Bones: 5 nonrib-bearing vertebrae are present. There is normal bony alignment. No acute vertebral body compression fractures. No suspicious bony lesions. Moderate multilevel lumbar spondylosis with degenerative endplate changes, disc space loss, and endplate osteophyte formation. There is also moderate-severe mid and lower lumbar facet arthropathy. Bony foraminal stenosis noted at L5-S1. Soft tissues: Overlying bowel gas pattern is normal. No suspicious soft tissue calcifications. Oblique images: No pars defects. IMPRESSION: Lumbar spine without acute osseous abnormalities. Moderate multilevel lumbar spondylosis most severe at L5-S1. Dictated by: Johan Lovell M.D. on 01/29/2025 at 9:28 Approved by: Johan Lovell M.D. on 01/29/2025 at 9:29
--- NOTE | 2025-01-29 08:13 | DI.RAD.S_ITS ---
PROCEDURE: XR CERVICAL SPINE 4V OR 5V INDICATIONS: NECK PAIN TECHNIQUE: 5 views of the cervical spine acquired. COMPARISON: None. FINDINGS: Bones: No fractures or dislocations to the T2 level. Oblique images demonstrate mild bony foraminal stenoses at the right C6-7 and C7-T1 levels as well as the left C3-4 and C7-T1 levels. Straightening of cervical lordosis which may be due to patient positioning and/or concurrent muscle spasms. Multilevel cervical spondylitic changes with degenerative endplate changes, disc space loss and endplate osteophyte formation. Findings are most severe at C6-7. Soft tissues: No prevertebral soft tissue swelling. IMPRESSION: Cervical spine without acute fracture or traumatic malalignment. Straightening of cervical lordosis likely related to patient positioning and/or concurrent muscle spasms. Multilevel cervical spondylosis most pronounced at C6-7 with mild bony foraminal stenosis at the right C6-7 and C7-T1 levels as well as the left C3-4 and C7-T1 levels. Dictated by: Johan Lovell M.D. on 01/29/2025 at 9:24 Approved by: Johan Lovell M.D. on 01/29/2025 at 9:27
== END ==
PROVIDERS: PCP Physician Assistant; Referring Provider Physical Medicine & Rehabilitation; Visit Provider Physical Medicine & Rehabilitation
DX: M47.812 Spondylosis without myelopathy or radiculopathy, cervical region (principal); M47.816 Spondylosis without myelopathy or radiculopathy, lumbar region; M47.817 Spondylosis without myelopathy or radiculopathy, lumbosacral region; M48.02 Spinal stenosis, cervical region; M48.07 Spinal stenosis, lumbosacral region
CPT/HCPCS: 72050; 72110